=== PATIENT | male | born 1970 | race Caucasian/White ===

== ENCOUNTER 2021-09-18 18:38 | Emergency (ER) | payer OTHER, SELFPAY ==
--- NOTE | ~2021-09-18 | CT_ITS ---
EXAMINATION: CT ANGIOGRAM OF THE CHEST WITH AND WITHOUT CONTRAST (CT PULMONARY ANGIOGRAM FOR PE) CLINICAL INFORMATION: Reason for Exam chest pain, hx VTE, elevated d-dimer COMPARISON: None TECHNIQUE: Prior to contrast administration, noncontrast localization images were obtained. Subsequently, multidetector volumetric imaging was performed from the thoracic inlet to below the diaphragms following the administration of 80 mL Omnipaque 350 intravenous contrast. No contrast reaction reported Sagittal, coronal, and MIP oblique sagittal reformatted images were obtained on the CT workstation, uploaded to PACS, and reviewed. This CT examination was performed using dose optimization techniques as appropriate, variously including the following: *Automated exposure control *Adjustment of mA and/or kV according to patient size (this includes techniques or standardized protocols for targeted exams where dose is matched to indication/reason for exam; i.e. extremities or head) *Use of iterative reconstruction technique Total exam dose-length product 344 mGy-cm FINDINGS: QUALITY OF STUDY/CONTRAST BOLUS: Satisfactory. PULMONARY ARTERIES: No central or segmental pulmonary emboli. THORACIC AORTA: No aneurysm or dissection. LUNG: No focal consolidation, nodules or masses. Mild diffuse bronchial wall thickening without bronchiectasis. PLEURA: No pleural effusion or pneumothorax. MEDIASTINUM: Normal heart size. No pericardial effusion. Coronary calcifications. No hilar or mediastinal lymphadenopathy. No evidence of septal bowing or right heart strain. CHEST WALL/AXILLA: No axillary or internal mammary lymphadenopathy. OSSEOUS STRUCTURES: No acute or suspicious osseous abnormality. UPPER ABDOMEN: Unremarkable. CT/CT angio chest PE protocol IMPRESSION: No pulmonary embolism. No aortic aneurysm or dissection. Coronary calcifications. Mild diffuse bronchial wall thickening without bronchiectasis. Findings suggest bronchitis and/or asthma. VTE: negative
--- NOTE | ~2021-09-18 | XR_ITS ---
EXAMINATION: XR CHEST CLINICAL INFORMATION: Lower chest wall pain COMPARISON: None TECHNIQUE: 2 views of the chest were obtained. FINDINGS: No significant abnormality is noted involving the heart, lungs, mediastinum, bony thorax or soft tissues. XR/XR chest 2V IMPRESSION: Unremarkable examination.
[2021-09-18 19:08] VITALS: BP 125/85; PULSE 72; RESP 16; TEMP 36.2; O2SAT 98; BMI 34.9
[2021-09-18 20:00] VITALS: BP 125/85; PULSE 72; RESP 16
[2021-09-18 22:10] LABS: MANUAL DIFF FLAG NO
[2021-09-18 22:14] LABS: Basophils Percent Auto 0.4 % (0-2); Eosinophils Absolute Auto 0.1 X10*3/uL (0.0-0.4); Eosinophils Percent Auto 1.3 % (0-4); Hematocrit 48.3 % (42.0-52.0); Hemoglobin 16.1 g/dl (14.0-18.0); Imm Gran Abs Auto 0.01 X10*3/uL (0.00-0.03); Imm Gran Pct Auto 0.1 % (0.0-0.4); Lymphocytes Absolute Auto 2.6 X10*3/uL (1.2-4.9); Mean Corpuscular HGB Conc 33.3 g/dl (31.0-36.0); Mean Corpuscular Hemoglobin 29.8 pg (27.0-33.0); Mean Corpuscular Volume 89.4 fL (80.0-98.0); Monocytes Absolute Auto 0.7 X10*3/uL (0.1-1.2); Monocytes Percent Auto 9.4 % (2-11); Neutrophils Absolute Auto 3.7 x10*3/uL (2.0-8.3); Neutrophils Percent Auto 52.8 % (45-73); Platelet Count 142 X10*3/uL (160-400); Red Cell Distribution Width 13.2 % (11.0-16.0); White Blood Count 7.1 X10*3/uL (4.8-10.8)
[2021-09-18 22:15] VITALS: BP 120/70; PULSE 56; RESP 18; TEMP 36.6; O2SAT 95
[2021-09-18 22:19] LABS: Appearance Urine CLEAR; Color Urine YELLOW; Glucose Urine UA NEG (NEG); Leukocyte Esterase Urine NEG (NEG); Nitrite Urine NEG (NEG); Urine Blood NEG (NEG); Urine Ketones NEG (NEG); Urine Protein NEG (NEG-TRACE)
--- NOTE | 2021-09-18 22:24 | ED_ITS ---
HPI - General Adult General Chief complaint: Back Pain/Injury Stated complaint: kidney pain Time Seen by Provider: 09/18/21 21:41 Source: patient Mode of arrival: ambulatory History of Present Illness HPI narrative: 50-year-old male not currently on any prescribed medications but does have a significant remote history of prior left lower extremity DVT for which he was on 1 year of anticoagulation and then states he had a TIA after he was taken off of the anticoagulation and was evaluated at [facility] at that time. They did not identify the source and he has had no significant issues since that time. He now presents with 2 days bilateral diaphragmatic distribution of pain that does not radiate into the anterior abdomen is not been associated with fever, chills, new cough, nausea, vomiting, diarrhea but states that the pain is more uncomfortable with deep inspiration. Patient does describe chronic back pain. Related Data Allergies Allergy/AdvReac Type Severity Reaction Status Date / Time No Known Allergies Allergy Verified 09/18/21 19:08 Review of Systems Review of Systems: pertinent positives and negatives as stated in HPI 10 point review of systems is otherwise negative PMFSH Past Medical History Source: nursing notes reviewed Social History Social History Alcohol intake: unknown Patient Tobacco Use Status: Tobacco use Unknown Use of substances other than those prescribed or required for medical reasons: Unknown Advance Directives: No Physical Exam ED Vital Signs: Vital Signs - 24 hr 09/18/21 19:08 09/18/21 20:00 09/18/21 22:15 Temperature 97.1 F 97.9 F Pulse Rate 72 72 56 Respiratory Rate 16 16 18 Blood Pressure 125/85 125/85 120/70 Pulse Oximetry 98 95 09/19/21 00:29 Temperature 97.8 F Pulse Rate 54 Respiratory Rate 12 Blood Pressure 117/75 Pulse Oximetry 97 BMI result Body Mass Index 34.9 VITAL SIGNS: Reviewed. GENERAL: Well developed, well nourished, in no acute distress. HEAD: Normocephalic/atraumatic EYES: PERRLA, EOMI OROPHARYNX: no oral lesions noted, posterior pharynx clear LUNGS: Normal breath sounds. No adventitious sounds or accessory muscle use. SpO2<98> CARDIOVASCULAR: Regular rate and rhythm without noted murmurs, no JVD or lower extremity edema. ABDOMEN: Soft, non-tender, non-distended with bowel sounds. MUSCULOSKELETAL: No tenderness, deformities, or effusions noted on gross inspection. EXTREMITIES: No cyanosis, clubbing or edema. SKIN: Inspection of the skin reveals no rashes NEUROLOGIC: Alert and oriented x 4. Strength and sensation to light touch were grossly intact x 4. Course Course Course Narrative: 50-year-old male with history and clinical presentation most consistent with back pain, but will evaluate for possibility of pancreatitis, hepatobiliary etiology, and felt to be less likely renal colic. Review of all investigations otherwise negative for acute findings. Suspect t hat the symptoms are associated with back pain. All results were discussed with patient at bedside he was discharged home in stable condition. Medical Decision Making Lab Data Result diagrams: 09/18/21 22:05 09/18/21 22:05 Labs: Lab Results 09/18/21 09/18/21 09/18/21 Range/Units 22:05 22:05 22:12 WBC 7.1 (4.8-10.8) X10*3/uL RBC 5.40 (4.60-5.80) X10*6/uL Hgb 16.1 (14.0-18.0) g/dl Hct 48.3 (42.0-52.0) % MCV 89.4 (80.0-98.0) fL MCH 29.8 (27.0-33.0) pg MCHC 33.3 (31.0-36.0) g/dl RDW 13.2 (11.0-16.0) % Plt Count 142 L (160-400) X10*3/uL MPV 10.0 (9.4-12.4) fL Immature Gran % (Auto) 0.1 (0.0-0.4) % Neut % (Auto) 52.8 (45-73) % Lymph % (Auto) 36.0 (20-40) % Towner % (Auto) 9.4 (2-11) % Eos % (Auto) 1.3 (0-4) % Baso % (Auto) 0.4 (0-2) % Lymph # (Auto) 2.6 (1.2-4.9) X10*3/uL Towner # (Auto) 0.7 (0.1-1.2) X10*3/uL Eos # (Auto) 0.1 (0.0-0.4) X10*3/uL Baso # (Auto) 0.0 (0.0-0.2) X10*3/uL Abs Immat Gran (auto) 0.01 (0.00-0.03) X10*3/uL Absolute Neuts (auto) 3.7 (2.0-8.3) x10*3/uL Absolute Nucleated RBC 0.000 (0.0-0.012) X10*3/uL Nucleated RBC % (auto) 0.0 (0.0-0.2) /100WBC D-Dimer High Sensitivty NG/ML Sodium 140 (135-145) mmol/L Potassium 4.5 (3.3-5.1) mmol/L Chloride 106 (96-108) mmol/L Carbon Dioxide 27 (22-29) mmol/L Anion Gap 12 (12-20) BUN 13 (9-16) mg/dL Creatinine 0.99 (0.5-1.4) mg/dL Estim Creat Clear Calc 105.6 Estimated GFR > 60 Random Glucose 92 (60-115) mg/dL Calcium 9.3 (8.4-10.2) mg/dL Total Bilirubin 0.5 (0.0-1.0) mg/dL AST 18 (5-37) U/L ALT 25 (0-40) U/L Alkaline Phosphatase 73 (39-117) U/L Total Protein 7.0 (6.5-8.0) g/dL Albumin 4.1 (3.5-5.0) g/dL Lipase 18 (8-78) U/L Urine Color YELLOW Urine Appearance CLEAR Urine pH 6.0 (5.0-8.0) Ur Specific Bulger 1.020 (1.005-1.025) Urine Protein NEG (NEG-TRACE) MG/DL Urine Glucose (UA) NEG (NEG) MG/DL Urine Ketones NEG (NEG) MG/DL Urine Blood NEG (NEG) Urine Nitrite NEG (NEG) Ur Leukocyte Esterase NEG (NEG) 09/18/21 Range/Units 23:11 WBC (4.8-10.8) X10*3/uL RBC (4.60-5.80) X10*6/uL Hgb (14.0-18.0) g/dl Hct (42.0-52.0) % MCV (80.0-98.0) fL MCH (27.0-33.0) pg MCHC (31.0-36.0) g/dl RDW (11.0-16.0) % Plt Count (160-400) X10*3/uL MPV (9.4-12.4) fL Immature Gran % (Auto) (0.0-0.4) % Neut % (Auto) (45-73) % Lymph % (Auto) (20-40) % Towner % (Auto) (2-11) % Eos % (Auto) (0-4) % Baso % (Auto) (0-2) % Lymph # (Auto) (1.2-4.9) X10*3/uL Towner # (Auto) (0.1-1.2) X10*3/uL Eos # (Auto) (0.0-0.4) X10*3/uL Baso # (Auto) (0.0-0.2) X10*3/uL Abs Immat Gran (auto) (0.00-0.03) X10*3/uL Absolute Neuts (auto) (2.0-8.3) x10*3/uL Absolute Nucleated RBC (0.0-0.012) X10*3/uL Nucleated RBC % (auto) (0.0-0.2) /100WBC D-Dimer High Sensitivty 333 NG/ML Sodium (135-145) mmol/L Potassium (3.3-5.1) mmol/L Chloride (96-108) mmol/L Carbon Dioxide (22-29) mmol/L Anion Gap (12-20) BUN (9-16) mg/dL Creatinine (0.5-1.4) mg/dL Estim Creat Clear Calc Estimated GFR Random Glucose (60-115) mg/dL Calcium (8.4-10.2) mg/dL Total Bilirubin (0.0-1.0) mg/dL AST (5-37) U/L ALT (0-40) U/L Alkaline Phosphatase (39-117) U/L Total Protein (6.5-8.0) g/dL Albumin (3.5-5.0) g/dL Lipase (8-78) U/L Urine Color Urine Appearance Urine pH (5.0-8.0) Ur Specific Bulger (1.005-1.025) Urine Protein (NEG-TRACE) MG/DL Urine Glucose (UA) (NEG) MG/DL Urine Ketones (NEG) MG/DL Urine Blood (NEG) Urine Nitrite (NEG) Ur Leukocyte Esterase (NEG) Discharge Plan Discharge Clinical Impression: Thoracic back pain Patient Disposition: Home, Self-Care Instructions: Back Pain (ED) Additional Instructions: 1. Tylenol 1000 mg, orally, every 6 hours as needed for pain control. Do not exceed 4000 mg within 24 hours. 2. Ibuprofen 400 mg, orally with milk or food, every 6 hours as needed for pain control. You may take this along with Tylenol for additional symptom relief. 3. Lidocaine patch, these are available [id number] and can be apply to area of maximal tenderness as directed on the outside packaging. 4. Follow-up with your primary care provider in the next 2-3 days for re- evaluation further outpatient management. Return to the ER for worsening symptoms.
[2021-09-18 22:25] LABS: Alanine Aminotransferase 25 U/L (0-40); Albumin Level 4.1 g/dL (3.5-5.0); Alkaline Phosphatase 73 U/L (39-117); Anion Gap 12 (12-20); Aspartate Amino Transferase 18 U/L (5-37); Bilirubin Total 0.5 mg/dL (0.0-1.0); Blood Urea Nitrogen 13 mg/dL (9-16); Calcium 9.3 mg/dL (8.4-10.2); Carbon Dioxide 27 mmol/L (22-29); Chloride 106 mmol/L (96-108); Creatinine Clr Calc Pharmacy 105.6; Estimated Glomerular Filt Rate > 60; Glucose Random 92 mg/dL (60-115); Lipase 18 U/L (8-78); Potassium 4.5 mmol/L (3.3-5.1); Sodium 140 mmol/L (135-145)
[2021-09-18 23:26] LABS: D Dimer High Sensitivity 333 NG/ML
[2021-09-19] MEDS: iohexoL 350 MG/ML 100 ML INFUS..BTL 65 ML IV (00:27)
[2021-09-19 00:29] VITALS: BP 117/75; PULSE 54; RESP 12; TEMP 36.6; O2SAT 97
[2021-09-19] MEDS: Ibuprofen 400 MG TABLET PO (01:06)
[2021-09-19] MEDS: Acetaminophen 325 MG TABLET 975 MG PO (01:06)
== END 2021-09-19 01:13 | disposition home or self-care (01) ==
PROVIDERS: Emergency Provider Student in an Organized Health Care Education/Training Program
DX: M54.6 Pain in thoracic spine (principal)
CPT/HCPCS: 36415; 71046; 71275; 80053; 81003; 83690; 85025; 85379; 99284; 99285; Q9967

== ENCOUNTER 2022-07-01 06:14 | Outpatient (REF) | payer OTHER, SELFPAY ==
[2022-07-01 11:17] LABS: MANUAL DIFF FLAG NO
[2022-07-01 11:25] LABS: Basophils Percent Auto 0.6 % (0-2); Eosinophils Absolute Auto 0.1 X10*3/uL (0.0-0.4); Eosinophils Percent Auto 1.5 % (0-4); Hemoglobin 16.7 g/dl (14.0-18.0); Imm Gran Abs Auto 0.03 X10*3/uL (0.00-0.03); Imm Gran Pct Auto 0.5 % (0.0-0.4); Lymphocytes Absolute Auto 1.8 X10*3/uL (1.2-4.9); Lymphocytes Percent Auto 27.9 % (20-40); Mean Corpuscular HGB Conc 33.4 g/dl (31.0-36.0); Mean Corpuscular Hemoglobin 30.3 pg (27.0-33.0); Mean Corpuscular Volume 90.7 fL (80.0-98.0); Mean Platelet Volume 10.8 fL (9.4-12.4); Monocytes Absolute Auto 0.6 X10*3/uL (0.1-1.2); Monocytes Percent Auto 9.7 % (2-11); Neutrophils Percent Auto 59.8 % (45-73); Platelet Count 132 X10*3/uL (160-400); Red Blood Count 5.51 X10*6/uL (4.60-5.80); Red Cell Distribution Width 13.2 % (11.0-16.0); White Blood Count 6.6 X10*3/uL (4.8-10.8)
[2022-07-01 11:49] LABS: Alanine Aminotransferase 37 U/L (0-40); Albumin Level 4.2 g/dL (3.5-5.0); Alkaline Phosphatase 70 U/L (39-117); Anion Gap 11 (12-20); Aspartate Amino Transferase 25 U/L (5-37); Bilirubin Total 0.5 mg/dL (0.0-1.0); Blood Urea Nitrogen 16 mg/dL (9-16); Calcium 9.3 mg/dL (8.4-10.2); Carbon Dioxide 25 mmol/L (22-29); Chloride 105 mmol/L (96-108); Cholesterol 126 mg/dL; Estimated Glomerular Filt Rate > 60; Glucose Fasting 100 mg/dL (60-99); HDL Cholesterol 24 mg/dL; LDL Cholesterol Calculated 71 mg/dl; Potassium 4.4 mmol/L (3.3-5.1); Sodium 137 mmol/L (135-145); Total Protein 6.8 g/dL (6.5-8.0); Triglycerides 156 mg/dL
== END 2022-07-01 06:15 | disposition home or self-care (01) ==
LOC: HO.HMGCLDS 06:14
PROVIDERS: PCP Internal Medicine; Visit Provider Internal Medicine
DX: I25.2 Old myocardial infarction (principal); I10 Essential (primary) hypertension; E66.9 Obesity, unspecified; E78.5 Hyperlipidemia, unspecified; D69.6 Thrombocytopenia, unspecified
CPT/HCPCS: 36415; 80053; 80061; 85025

== ENCOUNTER → 2022-08-05 07:55 | Outpatient (BNVA) | payer OTHER, SELFPAY | PROVIDERS: PCP Internal Medicine; Visit Provider Nurse Practitioner Family | DX: Z13.89 Encounter for screening for other disorder (principal) ==

== ENCOUNTER → 2022-08-17 14:59 | Outpatient (REF) | payer OTHER, SELFPAY | LOC: HO.SL 14:59 | PROVIDERS: PCP Internal Medicine; Visit Provider Nurse Practitioner Family | DX: G47.33 Obstructive sleep apnea (adult) (pediatric) (principal); E66.9 Obesity, unspecified; Z99.89 Dependence on other enabling machines and devices | CPT/HCPCS: 95806 ==

== ENCOUNTER → 2022-09-29 09:20 | Outpatient (BNVA) | payer OTHER, SELFPAY | PROVIDERS: PCP Internal Medicine; Visit Provider Nurse Practitioner Family | DX: G47.33 Obstructive sleep apnea (adult) (pediatric) (principal); Z99.89 Dependence on other enabling machines and devices; I10 Essential (primary) hypertension; E66.9 Obesity, unspecified; I25.2 Old myocardial infarction ==

== ENCOUNTER 2022-10-29 06:54 | Outpatient (REF) | payer OTHER, SELFPAY ==
[2022-10-29 11:40] LABS: MANUAL DIFF FLAG NO
[2022-10-29 11:53] LABS: Basophils Percent Auto 0.4 % (0-2); Eosinophils Absolute Auto 0.1 X10*3/uL (0.0-0.4); Eosinophils Percent Auto 1.8 % (0-4); Hematocrit 49.2 % (42.0-52.0); Hemoglobin 16.2 g/dl (14.0-18.0); Imm Gran Abs Auto 0.02 X10*3/uL (0.00-0.03); Imm Gran Pct Auto 0.3 % (0.0-0.4); Lymphocytes Absolute Auto 1.9 X10*3/uL (1.2-4.9); Lymphocytes Percent Auto 28.7 % (20-40); Mean Corpuscular HGB Conc 32.9 g/dl (31.0-36.0); Mean Corpuscular Hemoglobin 29.8 pg (27.0-33.0); Mean Corpuscular Volume 90.6 fL (80.0-98.0); Mean Platelet Volume 11.1 fL (9.4-12.4); Monocytes Absolute Auto 0.6 X10*3/uL (0.1-1.2); Monocytes Percent Auto 8.1 % (2-11); Neutrophils Absolute Auto 4.1 x10*3/uL (2.0-8.3); Neutrophils Percent Auto 60.7 % (45-73); Platelet Count 146 X10*3/uL (160-400); Red Blood Count 5.43 X10*6/uL (4.60-5.80); Red Cell Distribution Width 13.6 % (11.0-16.0); White Blood Count 6.8 X10*3/uL (4.8-10.8)
[2022-10-29 12:42] LABS: Alanine Aminotransferase 44 U/L (0-40); Anion Gap 11 (12-20); Aspartate Amino Transferase 29 U/L (5-37); Blood Urea Nitrogen 15 mg/dL (9-16); Calcium 8.9 mg/dL (8.4-10.2); Carbon Dioxide 27 mmol/L (22-29); Chloride 107 mmol/L (96-108); Cholesterol 114 mg/dL; Estimated Glomerular Filt Rate > 60; Glucose Fasting 91 mg/dL (60-99); HDL Cholesterol 29 mg/dL; LDL Cholesterol Calculated 57 mg/dl; PSA,Total (Free>4and<10) 0.68 ng/mL (0.00-4.00); Potassium 4.2 mmol/L (3.3-5.1); Sodium 141 mmol/L (135-145); Triglycerides 140 mg/dL; Vitamin D 25-OH Total 36.1 ng/mL (>30)
== END 2022-10-29 06:55 | disposition home or self-care (01) ==
LOC: HO.HMGCLDS 06:54
PROVIDERS: PCP Internal Medicine; Visit Provider Internal Medicine
DX: E78.5 Hyperlipidemia, unspecified (principal); I25.2 Old myocardial infarction; E66.9 Obesity, unspecified; I10 Essential (primary) hypertension; D69.6 Thrombocytopenia, unspecified; Z12.5 Encounter for screening for malignant neoplasm of prostate
CPT/HCPCS: 36415; 80048; 80061; 82306; 84153; 84450; 84460; 85025

== ENCOUNTER 2022-11-01 11:38 | Outpatient (AMB) | payer OTHER, SELFPAY ==
--- NOTE | 2022-11-01 10:07 | A.OFFPC_ITS ---
Vital Signs 11/01/22 12:11 Height 5 ft 8 in Weight 239 lb 2 oz BMI 36.3 BP 108/70 Blood Pressure Location Rt brachial Position Sitting Pulse 61 Pulse Source Pulse Oximeter Pulse Oximetry (%) 97 Oxygen Delivery Method Room Air Intake Visit Reasons: 10/2022 ffup lipids , htn Intake Note: pt is here to follow up for HTN and choles pt has had his labs done Allergies No Known Allergies Allergy (Verified 04/24/23 16:05) Medication List - Last Reconciled 11/01/22 by Donna Romero MD aspirin 81 mg PO DAILY fluticasone propionate 50 mcg/actuation (Children's Flonase Allergy Relief) 1 spray intranasal DAILY metoprolol succinate ER 25 mg PO DAILY multivitamin 1 tab PO DAILY rosuvastatin 40 mg PO DAILY ticagrelor (Brilinta) 90 mg PO BID Tobacco use date assessed: 11/01/22 HPI 10/2022 ffup lipids , htn HPI Details 52-year-old male here today for follow-u p on his hypertension dyslipidemia, currently taking metoprolol succinate ER 25 mg once a day and with rosuvastatin 40 mg daily. Has been compliant with taking his medications and has been following recommended diet. Recent fasting labs showed electrolytes, renal function, lipids within normal limits except for low good cholesterol. Is cigarette smoker at least 8 cigarettes a day, interested in quitting. [facility] Medical History (Updated 04/24/23 @ 16:12 by Donna Romero MD) Atherosclerotic cardiovascular disease Cigarette smoker motivated to quit Smoker unmotivated to quit Thrombocytopenia Hx of deep venous thrombosis AUDREY on CPAP HTN (hypertension) Obesity Hyperlipidemia Hx of non-ST elevation myocardial infarction (NSTEMI) Surgical History History of heart artery stent History of coronary angioplasty Family History Father Arrhythmia Bacterial endocarditis Mother No problems noted. Daughter Asthma Thyroid cancer Hypoparathyroidism after surgical removal of thyroid gland Social History Housing: House Alcohol intake: current Alcohol intake frequency: other Patient Tobacco Use Status: Current everyday Tobacco user Cigarettes Per Day: 8 e-Cigarette/Vaping Use: Former Use Second Hand Smoke Exposure: No service: No Current occupational status: employed Cognitive needs: No Hearing needs: No Vision needs: Yes Questionnaire PHQ-9 Over the last 2 weeks, how often have you been bothered by any of the following problems? Depression Screening Interpretation: Negative Source: Developed by Drs. Cedric Juan, Ofelia Quiñones, Robert Choudhury and colleagues, with an educational carlos from [employer]. Thrive Questionnaire Date Thrive assessed: 03/22/22 TOBIAS-7 AMB Questionnaire TOBIAS-7 Date TOBIAS - 7 assessed: 03/22/22 Source: Developed by Drs. Cedric Juan, Ofelia Quiñones, Robert Choudhury and colleagues, with an educational carlos from [employer]. Review of Systems Const Denies fatigue, Denies fever(s), Denies frequent falls, Denies snoring and Denies weakness Eyes Denies change in vision ENT Reports Normal hearing present, Denies dysphagia, Denies dizziness, Denies nasal congestion, Denies disequilibrium, Denies post nasal drip and Denies sinus pressure Card Denies chest pain, Denies chest pain with activity, Denies syncope, Denies rapid heart rate, Denies claudication, Denies leg edema, Denies lightheadedness, Denies palpitations, Denies dyspnea and Denies dyspnea on exertion Resp Denies cough, Denies dyspnea, Denies dyspnea on exertion, Denies snoring and Denies wheezing GI Denies abdominal pain, Denies melena, Denies hematochezia, Denies change in bowel habits, Denies change in stool character, Denies dysphagia, Denies heartburn and Denies nausea Denies hematuria, Denies dysuria and Denies urinary frequency Musc Denies arthralgias, Denies muscle weakness, Denies numbness and Denies tingling Skin/Breast Denies nail changes and Denies rash Neuro Reports Normal hearing present, Denies dizziness, Denies syncope, Denies frequent falls, Denies memory loss, Denies numbness, Denies tingling, Denies disequilibrium and Denies weakness Psych Denies depression and Denies memory loss Endo Denies fatigue and Denies palpitations Sherwin/Lymph Denies easy bleeding and Denies easy bruising Aller/Immun Denies wheezing Physical exam (Primary Care) Vital Signs: Last Vital Signs Pulse 61 11/01/22 12:11 BP 108/70 11/01/22 12:11 Pulse Ox 97 11/01/22 12:11 Oxygen Delivery Method Room Air 11/01/22 12:11 BMI result Body Mass Index 36.3 BMI Assessment/Plan discussion: High BMI High, discussed plan: lifestyle, weight reduction, dietary and physical activity Tobacco/Smoking Status: Tobacco use Status Tobacco use date assessed 11/01/22 11/01/22 12:16 Patient Tobacco Use Status Current someday Tobacco 11/01/22 10:07 e-Cigarette/Vaping Use Former Use 11/01/22 10:07 Are you ready to quit: No Tobacco cessation counseling provided: Yes Items discussed: Other Depression Screening Interpretation: Negative Thrive Assessment: Date of Thrive Assessment Date Thrive assessed 03/22/22 11/01/22 10:07 Const Other: Alert oriented x3, no acute distress noted ambulatory normal gait Nutritional Appearance: obese Orientation/consciousness: patient oriented x3 HENMT Head: Yes normocephalic and Yes atraumatic Ears: TM's normal bilaterally General nose exam: Normal external nose present Face and sinus: Yes face symmetric Mouth: Normal oral and palatal mucosa present and moist mucous membranes Eyes General: appearance normal, both eyes and all related structures Neck Neck: Yes full ROM, Yes no lymphadenopathy and Yes supple Thyroid: Thyroid normal Carotids: no bruits Chest Chest palpation & inspection: normal inspection of the chest and normal palpation of entire chest wall Resp Effort & Inspection: normal respiratory effort and able to speak in complete sentences Auscultation: clear to auscultation bilaterally Cardio Other: S1-S2 present regular rate and rhythm Bruits: no abdominal aortic bruits GI Inspection: Yes obesity Palpation (GI): No Abdominal aortic bruit present, Soft to palpation, nontender, no guarding and no masses Auscultation: normal bowel sounds Back/Spine/Pelvis Back: No back tenderness Skin General skin exam: no rashes or lesions noted Neuro General: patient oriented x3, gait normal, Normal light touch and pain sensation, no focal motor deficits and CN's II-XI intact bilaterally Cranial nerves: Yes Normal hearing present Extrem General: Yes full ROM, Yes no joint enlargement, Yes no calf tenderness and Yes normal gait Results Reviewed Results Reviewed: Name: Cedric Long Age/Sex: 51/M : 1970 Unit#: [id number] Attend Dr: Donna Romero MD Re10/29/22 Status: DEP REF Location: [facility] Disch: SPEC : [id number] ROSALEE: 10/29/22 STATUS: COMP REQ : [id number] RECD: 10/29/22-[address]: Donna Romero MD COMP: 10/29/222 ENTERED: 10/29/[address] [facility] [address]: ORDERED: Met Prof Fast, AST, ALT, Lipid Panel, PSA W/ REFLEX, Vitamin D 25-OH Test Result Flag Reference Site Sodium 141 135-145 mmol/L Potassium 4.2 3.3-5.1 mmol/L CL 107 96-108 mmol/L CO2 27 22-29 mmol/L Gap 11 L 12-20 BUN 15 9-16 mg/dL Creat 1.07 0.5-1.4 mg/dL EGFR > 60 NOTE: For -[place] individuals, multiply the result by 1.210. Chronic Kidney Disease: Estimated GFR < 60 mL/min/1 .73m2 Severe Kidney Disease: Estimated GFR < 15 mL/min/1.73m2 FBS 91 60-99 mg/dL CA 8.9 8.4-10.2 mg/dL AST (GOT) 29 5-37 U/L ALT (GPT) 44 H 0-40 U/L Triglyceride 140 mg/dL Desirable Triglyceride: less than 150 mg/dL Borderline High Triglyceride 150-199 mg/dL High Triglyceride: 200-499 mg/dL Very High Triglyceride: greater than or equal to 5OO mg/dL Chol 114 mg/dL Desirable Cholesterol: less than 200 mg/dL Borderline High Cholesterol: 200-239 mg/dL High Cholesterol: greater than 239 mg/dL LDL Calculated 57 mg/dl Desirable LDL: less than 100 mg/dL Near Optimal/Above Optimal LDL: 110-129 mg/dL Borderline High LDL: 130-159 mg/dL High LDL: 160-189 mg/dL Very High LDL: greater than or equal to 190 mg/dL HDL 29 mg/dL Desirable HDL: greater than 40 mg/dL Note: This HDL assay may give artificially low results in patients with liver disease. PSA W/ REFLEX 0.68 0.00-4.00 ng/mL A Free PSA was not performed: The percentage of Free PSA can be used to enhance the differentiation of prostate cancer from benign prostatic disease in subjects whose PSA levels are between 4.0 and 10.0 ng/mL. For subjects whose PSA levels are below 4.0 or above 10.0 ng/mL, the risk of prostate cancer is determined on the basis of the PSA alone. Therefore the % Free PSA is recommended only for those subjects whose PSA levels are between 4.0 and 10.0 ng/mL. PSA methodology: George Alinity i Chemiluminescent Microparticle Immunoassay (CMIA) Vit D 25-OH Tot 36.1 >30 ng/mL Health Based Reference Values* < 20 ng/mL Deficient 20-30 ng/mL Insufficient > 30 ng/mL Sufficient Assessment and Plan Assessment & Plan (1) Cigarette smoker motivated to quit: Code(s): F17.210 - Nicotine dependence, cigarettes, uncomplicated Plan: Prescription sent for varenicline, discussed possible side effects of medication which may include nausea, abdominal cramping, and suicidal ideations, to take it with a meal and with glass of water, discontinue the medication and call 911 if any suicidal ideations occurs. Follow-up in 4 weeks starting medication (2) HTN (hypertension): Code(s): I10 - Essential (primary) hypertension Qualifiers: Hypertension type: primary hypertension Qualified Code(s): I10 - Essential (primary) hypertension (3) Hyperlipidemia: Code(s): E78.5 - Hyperlipidemia, unspecified Qualifiers: Hyperlipidemia type: moderate mixed hyperlipidemia not requiring statin therapy Qualified Code(s): E78.2 - Mixed hyperlipidemia Plan: Reviewed recent fasting lipid profile with patient with levels within normal limits except for low HDL . Continue with rosuvastatin 40 mg daily , in addition to adherence to low-cholesterol diet and regular exercise, at least 30 minutes 3 to 4 times a week. Advised patient to make healthy food choices, eat more fruits, vegetables, whole grains, wild caught fish and low-fat dairy. Limit amount of meat and fried or fatty food products, as well as processed foods and fast foods. (4) Hx of non-ST elevation myocardial infarction (NSTEMI): Code(s): I25.2 - Old myocardial infarction Plan: Currently on aspirin 81 mg daily and Brilinta, followed by cardiology Medications: New varenicline PO PER PKG DIR 53 ea 0RF F17.210 - Nicotine dependence, cigarettes, uncomplicated Coding Level of Care Code Est Pt Level 4 (09873) Diagnoses Cigarette smoker motivated to quit F17.210 Primary hypertension I10 Hypertension type: primary hypertension Moderate mixed hyperlipidemia not requiring statin therapy E78.2 Hyperlipidemia type: moderate mixed hyperlipidemia not requiring statin therapy Hx of non-ST elevation myocardial infarction (NSTEMI) I25.2
[2022-11-01 12:11] VITALS: BP 108/70; PULSE 61; O2SAT 97; BMI 36.3
== END 2022-11-01 13:04 | disposition home or self-care (01) ==
LOC: HO.HMGC 11:38
PROVIDERS: PCP Internal Medicine; Visit Provider Internal Medicine
DX: F17.210 Nicotine dependence, cigarettes, uncomplicated (principal); I10 Essential (primary) hypertension; E78.2 Mixed hyperlipidemia; I25.2 Old myocardial infarction
CPT/HCPCS: 99214

== ENCOUNTER 2022-11-29 10:19 | Outpatient (AMB) | payer OTHER, SELFPAY ==
--- NOTE | 2022-11-29 10:21 | A.OFFPC_ITS ---
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 Allergies No Known Allergies Allergy (Verified 04/24/23 16:05) Medication List - Last Reconciled 11/29/22 by Donna Romero MD aspirin 81 mg PO DAILY fluticasone propionate 50 mcg/actuation (Children's Flonase Allergy Relief) 1 spray intranasal DAILY metoprolol succinate ER 25 mg PO DAILY multivitamin 1 tab PO DAILY rosuvastatin 40 mg PO DAILY ticagrelor (Brilinta) 90 mg PO BID varenicline PO PER PKG DIR Tobacco use date assessed: 11/29/22 HPI 4wk follow up htn HPI Details 52-year-old male with history of non YAW [place], obesity, obstructive sleep apnea on CPAP, here today for follow-up on his blood pressure. He has been taking metoprolol succinate ER 25 mg daily, and rosuvastatin 40 mg daily blood pressure has been stable and controlled on present treatment, and fasting lipids done a month ago showed LDL below 70 mg, but low HDL as well. Was prescribed varenicline on last visit but did not fill continues to smoke, with no desire to quit at present time. He previously was being seen at [facility] but has not followed up. Currently still taking Brilinta and aspirin 81 mg daily, no recent follow-up with Cardiology since his non STEMI a year ago. No complaints of any chest pain, no shortness of breath chest pressure lightheadedness or headache [facility] Medical History (Updated 04/24/23 @ 16:12 by Donna Romero MD) Atherosclerotic cardiovascular disease Smoker unmotivated to quit Thrombocytopenia Hx of deep venous thrombosis AUDREY on CPAP HTN (hypertension) Obesity Hyperlipidemia Hx of non-ST elevation myocardial infarction (NSTEMI) Surgical History History of heart artery stent History of coronary angioplasty Family History Father Arrhythmia Bacterial endocarditis Mother No problems noted. Daughter Asthma Thyroid cancer Hypoparathyroidism after surgical removal of thyroid gland Social History Housing: House Alcohol intake: current Alcohol intake frequency: other Patient Tobacco Use Status: Current everyday Tobacco user Cigarettes Per Day: 8 e-Cigarette/Vaping Use: Former Use Second Hand Smoke Exposure: No service: No Current occupational status: employed Cognitive needs: No Hearing needs: No Vision needs: Yes Questionnaire Thrive Questionnaire Date Thrive assessed: 03/22/22 AUDIT C Alcohol Use Questionnaire (AUDIT-C) 1. How often do you have a drink containing alcohol?: Monthly or less 2. How many drinks containing alcohol do you have on a typical day when you are drinking?: 1 or 2 3. How often do you have six or more drinks on one occasion?: Never Total Score: 1 TOBIAS-7 AMB Questionnaire TOBIAS-7 Date TOBIAS - 7 assessed: 03/22/22 Source: Developed by Drs. Cedric Juan, Ofelia Quiñones, Robert Choudhury and colleagues, with an educational carlos from [employer]. Review of Systems Const Denies daytime sleepiness, Denies fatigue, Denies fever(s), Denies frequent falls, Denies snoring and Denies weakness Eyes Denies change in vision ENT Reports Normal hearing present, Denies dysphagia, Denies dizziness, Denies nasal congestion, Denies disequilibrium, Denies post nasal drip and Denies sinus pressure Card Denies chest pain, Denies chest pain with activity, Denies syncope, Denies rapid heart rate, Denies claudication, Denies leg edema, Denies lightheadedness, Denies palpitations, Denies dyspnea and Denies dyspnea on exertion Resp Denies cough, Denies dyspnea, Denies dyspnea on exertion, Denies snoring and Denies wheezing GI Denies abdominal pain, Denies melena, Denies hematochezia, Denies change in bowel habits, Denies change in stool character, Denies dysphagia, Denies heartburn and Denies nausea Denies hematuria, Denies dysuria and Denies urinary frequency Musc Denies arthralgias, Denies muscle weakness, Denies numbness and Denies tingling Neuro Reports Normal hearing present, Denies dizziness, Denies syncope, Denies frequent falls, Denies numbness, Denies tingling, Denies disequilibrium and Denies weakness Psych Reports no additional complaints Endo Denies fatigue and Denies palpitations Sherwin/Lymph Denies easy bleeding and Denies easy bruising Aller/Immun Denies wheezing Physical exam (Primary Care) Vital Signs: Last Vital Signs Pulse 85 11/29/22 10:23 BP 112/70 11/29/22 10:23 Pulse Ox 94 11/29/22 10:23 Oxygen Delivery Method Room Air 11/29/22 10:23 BMI result Body Mass Index 35.9 BMI Assessment/Plan discussion: High BMI High, discussed plan: lifestyle, weight reduction, dietary and physical activity Tobacco/Smoking Status: Tobacco use Status Tobacco use date assessed 11/29/22 11/29/22 10:23 Patient Tobacco Use Status Current someday Tobacco 11/29/22 10:23 e-Cigarette/Vaping Use Former Use 11/29/22 10:23 Are you ready to quit: No Tobacco cessation counseling provided: Yes Items discussed: Other Thrive Assessment: Date of Thrive Assessment Date Thrive assessed 03/22/22 11/29/22 10:23 Const Other: Alert oriented x3, no acute distress noted ambulatory normal gait Nutritional Appearance: obese Orientation/consciousness: patient oriented x3 HENMT Head: Yes normocephalic and Yes atraumatic Ears: TM's normal bilaterally General nose exam: Normal external nose present Face and sinus: Yes face symmetric Mouth: Normal oral and palatal mucosa present and moist mucous membranes Eyes General: appearance normal, both eyes and all related structures Neck Neck: Yes full ROM, Yes no lymphadenopathy and Yes supple Resp Effort & Inspection: normal respiratory effort and able to speak in complete sentences Auscultation: clear to auscultation bilaterally Cardio Other: S1-S2 present regular rate and rhythm Bruits: no abdominal aortic bruits GI Inspection: Yes obesity Palpation (GI): No Abdominal aortic bruit present, Soft to palpation, nontender, no guarding and no masses Auscultation: normal bowel sounds Back/Spine/Pelvis Back: No back tenderness Skin General skin exam: no rashes or lesions noted Neuro General: patient oriented x3, gait normal, Normal light touch and pain sensation, no focal motor deficits and CN's II-XI intact bilaterally Cranial nerves: Yes Normal hearing present Extrem General: Yes full ROM, Yes no joint enlargement, Yes no calf tenderness and Yes normal gait Results Reviewed Results Reviewed: RUN: 11/29/22 1101 PAGE 1 [facility] [address] [place] [id number] Cinder Crane Operator: Trever Rubio M.D. Specimen Inquiry Name: Cedric Long Age/Sex: 51/M : 1970 Unit#: [id number] Attend Dr: Donna Romero MD Re10/29/22 Status: DEP REF Location: [facility] Disch: SPEC : [id number] ROSALEE: 10/29/22 STATUS: COMP REQ : [id number] RECD: 10/29/[address]: Donna Romero MD COMP: 10/29/22 ENTERED: 10/29/[address]: ORDERED: Met Prof Fast, AST, ALT, Lipid Panel, PSA W/ REFLEX, Vitamin D 25-OH Test Result Flag Reference Site N Sodium 141 135-145 mmol/L Potassium 4.2 3.3-5.1 mmol/L CL 107 96-108 mmol/L CO2 27 22-29 mmol/L Gap 11 L 12-20 BUN 15 9-16 mg/dL Creat 1.07 0.5-1.4 mg/dL EGFR > 60 NOTE: For -Pakistani individuals, multiply the result by 1.210. Chronic Kidney Disease: Estimated GFR < 60 mL/min/1.73m2 Severe Kidney Disease: Estimated GFR < 15 mL/min/1.73m2 FBS 91 60-99 mg/dL CA 8.9 8.4-10.2 mg/dL AST (GOT) 29 5-37 U/L ALT (GPT) 44 H 0-40 U/L Triglyceride 140 mg/dL Desirable Triglyceride: less than 150 mg/dL Borderline High Triglyceride 150-199 mg/dL High Triglyceride: 200-499 mg/dL Very High Triglyceride: greater than or equal to 5OO mg/dL Chol 114 mg/dL Desirable Cholesterol: less than 200 mg/dL Borderline High Cholesterol: 200-239 mg/dL High Cholesterol: greater than 239 mg/dL LDL Calculated 57 mg/dl Desirable LDL: less than 100 mg/dL Near Optimal/Above Optimal LDL: 110-129 mg/dL Borderline High LDL: 130-159 mg/dL High LDL: 160-189 mg/dL Very High LDL: greater than or equal to 190 mg/dL HDL 29 mg/dL Desirable HDL: greater than 40 mg/dL Note: This HDL assay may give artificially low results in patients with liver disease. PSA W/ REFLEX 0.68 0.00-4.00 ng/mL A Free PSA was not performed: The percentage of Free PSA can be used to enhance the differentiation of prostate cancer from benign prostatic disease in subjects whose PSA levels are between 4.0 and 10.0 ng/mL. For subjects whose PSA levels are below 4.0 or above 10.0 ng/mL, the risk of prostate cancer is determined on the basis of the PSA alone. Therefore the % Free PSA is recommended only for those subjects whose PSA levels are between 4.0 and 10.0 ng/mL. PSA methodology: George Alinity i Chemiluminescent Microparticle Immunoassay (CMIA) Vit D 25-OH Tot 36.1 >30 ng/mL Health Based Reference Values* < 20 ng/mL Deficient 20-30 ng/mL Insufficient > 30 ng/mL Sufficient Assessment and Plan Assessment & Plan (1) Hx of non-ST elevation myocardial infarction (NSTEMI): Code(s): I25.2 - Old myocardial infarction Plan: Referred to cardiology at [facility], has not been seen by Cardiology since his non STEMI episode a year ago, currently asymptomatic currently on Brilinta and aspirin 81 daily (2) HTN (hypertension): Code(s): I10 - Essential (primary) hypertension Qualifiers: Hypertension type: primary hypertension Qualified Code(s): I10 - Essential (primary) hypertension Plan: Continue metoprolol ER 25 mg daily (3) Hyperlipidemia: Code(s): E78.5 - Hyperlipidemia, unspecified Qualifiers: Hyperlipidemia type: moderate mixed hyperlipidemia not requiring statin therapy Qualified Code(s): E78.2 - Mixed hyperlipidemia Plan: Continued on rosuvastatin 40 mg daily (4) AUDREY on CPAP: Code(s): G47.33 - Obstructive sleep apnea (adult) (pediatric); Z99.89 - Dependence on other enabling machines and devices Plan: Compliant with CPAP (5) Smoker unmotivated to quit: Code(s): F17.200 - Nicotine dependence, unspecified, uncomplicated Plan: Patient strongly advised to stop smoking, as smoking damages blood vessels, degenerative of joints and spine, damage to lungs and heart., predisposes to developing certain cancers like lung, breast, bladder, colon. Recommended to try decreasing cigarette use by 1-2 cigarettes a day. Advised to monitor what triggers are for smoking so that this can be discussed on the next office visit. We can discuss different options to quit smoking when ready. Orders: Referrals Cardiology Referral I25.2 - Old myocardial infarction Coding Level of Care Code Est Pt Level 4 (56483) Diagnoses Hx of non-ST elevation myocardial infarction (NSTEMI) I25.2 Primary hypertension I10 Hypertension type: primary hypertension Moderate mixed hyperlipidemia not requiring statin therapy E78.2 Hyperlipidemia type: moderate mixed hyperlipidemia not requiring statin therapy AUDREY on CPAP G47.33; Z99.89 Smoker unmotivated to quit F17.200
[2022-11-29 10:23] VITALS: BP 112/70; PULSE 85; O2SAT 94; BMI 35.9
== END 2022-11-29 11:21 | disposition home or self-care (01) ==
LOC: HO.HMGC 10:19
PROVIDERS: PCP Internal Medicine; Visit Provider Internal Medicine
DX: I10 Essential (primary) hypertension (principal); F17.210 Nicotine dependence, cigarettes, uncomplicated; G47.33 Obstructive sleep apnea (adult) (pediatric); I25.2 Old myocardial infarction; E78.2 Mixed hyperlipidemia; Z99.89 Dependence on other enabling machines and devices
CPT/HCPCS: 99214

== ENCOUNTER 2023-02-16 08:20 | Outpatient (AMB) | payer OTHER, SELFPAY ==
[2023-02-16 08:28] VITALS: BP 100/74; PULSE 56; BMI 33.8
--- NOTE | 2023-02-16 08:28 | MHC.OFFVIS ---
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/22 Intake Note: NPV w/ EKG Geospatial Developer Required: No Accompanied by: Self / Same As Patient Allergies No Known Allergies Allergy (Verified 02/16/23 08:31) Medication List - Last Reconciled 02/16/23 by Aaron Sheppard MD aspirin 81 mg PO DAILY fluticasone propionate 50 mcg/actuation (Children's Flonase Allergy Relief) 1 spray intranasal DAILY metoprolol succinate ER 25 mg PO DAILY multivitamin 1 tab PO DAILY rosuvastatin 40 mg PO DAILY ticagrelor (Brilinta) 90 mg PO BID varenicline PO PER PKG DIR HPI HPI Comments History of Present Illness Details Cedric is here for consultation regarding coronary artery disease. He used to previously see [facility] but would like to switch here. Last year, he was admitted to [facility] with non ST-elevation myocardial infarction. At that time, it seems that he underwent circumflex stenting. History of smoking. Listed hypertension but blood pressure is actually on the lower side or normal on multiple recorded readings. Otherwise, has obesity as well as obstructive sleep apnea. Over the last year, after the PCI, he is doing well. No complaints like angina or shortness of breath or in fact anything cardiac sounding. [facility] Medical History (Updated 02/16/23 @ 08:49 by Aaron Sheppard MD) Atherosclerotic cardiovascular disease Cigarette smoker motivated to quit HTN (hypertension) Hx of deep venous thrombosis Hx of non-ST elevation myocardial infarction (NSTEMI) Hyperlipidemia Obesity AUDREY on CPAP Smoker unmotivated to quit Thrombocytopenia Surgical History History of coronary angioplasty History of heart artery stent Family History Father Arrhythmia Bacterial endocarditis Mother No problems noted. Daughter Asthma Thyroid cancer Hypoparathyroidism after surgical removal of thyroid gland Social History (Updated 02/16/23 @ 08:32 by Jo Bellamy) Housing: House Alcohol intake: current Alcohol intake frequency: other Patient Tobacco Use Status: Current everyday Tobacco user Cigarettes Per Day: 8 e-Cigarette/Vaping Use: Former Use Second Hand Smoke Exposure: No service: No Current occupational status: employed Cognitive needs: No Hearing needs: No Vision needs: Yes Review of Systems Const Denies chills, Denies daytime sleepiness, Denies fatigue, Denies fever(s), Denies frequent falls, Denies night sweats, Denies snoring, Denies weakness, Denies weight gain and Denies weight loss Eyes Denies loss of vision ENT Denies dizziness and Denies hearing loss Card Denies chest pain, Denies chest pain with activity, Denies syncope, Denies rapid heart rate, Denies edema, Denies claudication, Denies leg edema, Denies lightheadedness, Denies palpitations, Denies dyspnea, Denies dyspnea on exertion and Denies orthopnea Resp Denies cough, Denies excessive phlegm production, Denies dyspnea, Denies dyspnea on exertion, Denies snoring and Denies wheezing GI Denies abdominal pain, Denies hematochezia, Denies change in bowel habits, Denies change in stool character, Denies heartburn, Denies nausea and Denies vomiting Denies hematuria, Denies dysuria and Denies urinary frequency Musc Denies arthralgias, Denies muscle weakness, Denies numbness and Denies tingling Skin/Breast Denies nail changes and Denies rash Neuro Denies Abnormal speech present, Denies dizziness, Denies syncope, Denies frequent falls, Denies loss of vision, Denies memory loss, Denies numbness, Denies tingling and Denies weakness Psych Denies depression and Denies memory loss Endo Denies fatigue and Denies palpitations Aller/Immun Denies wheezing Physical Exam Vital Signs: Last Vital Signs Pulse 56 02/16/23 08:28 BP 100/74 02/16/23 08:28 BMI result Body Mass Index 33.8 Const General: comfortable and no acute distress Orientation/consciousness: patient oriented x3 HEENT Other: Unremarkable Head: Yes normal to inspection Neck Neck: Yes normal visual inspection Chest Chest palpation & inspection: normal inspection of the chest Resp Auscultation: clear to auscultation bilaterally Cardio Palpation: normal PMI Heart sounds: S1 normal heart sound present, S2 normal heart sound present, no gallops, no murmurs and no rubs GI Palpation (GI): Soft to palpation Back/Spine/Pelvis Other: unremarkable Skin General skin exam: no rashes or lesions noted Neuro General: patient oriented x3 Speech: No Abnormal speech present Extrem General: Yes normal to inspection Psych Mental Status: mental status grossly normal Office Procedures EKG Details: EKG with sinus bradycardia 56/Min; cannot exclude old inferior infarct or anterior infarct but could also be from body habitus[place]. [id number], Complete Assessment & Plan Assessment & Plan (1) Atherosclerotic cardiovascular disease: Code(s): I25.10 - Atherosclerotic heart disease of [place] coronary artery without angina pectoris (2) NSTEMI (non-ST elevated myocardial infarction): Code(s): I21.4 - Non-ST elevation (NSTEMI) myocardial infarction (3) Obesity: Code(s): E66.9 - Obesity, unspecified (4) AUDREY on CPAP: Code(s): G47.33 - Obstructive sleep apnea (adult) (pediatric); Z99.89 - Dependence on other enabling machines and devices Plan Cardiac studies reviewed. Echocardiogram with LVEF of 55-60%. No wall motion abnormalities. No significant valvular issues. [id number] LVH. Cardiac catheterization reviewed from March 2022. Circumflex with mid 90% stenosis. Status post PCI. Otherwise, diffuse CAD somewhat in the moderate range. Overall, stable CAD. Aggressive risk factor modification. Needs to lose some weight if able. Discussed about this today. Compliant with CPAP. Blood pressure is already normal range. LDL 57 mg/dL. With regard to AUDREY, continue CPAP. Follow-up in 6 months. If any interim concerns, he will contact us. Coding Level of Care Code New Pt Level 4 (58358) Diagnoses Atherosclerotic cardiovascular disease I25.10 NSTEMI (non-ST elevated myocardial infarction) I21.4 Obesity E66.9 AUDREY on CPAP G47.33; Z99.89 CPT Codes EKG - CPT: [id number], Complete ([id number])
== END 2023-02-16 08:53 | disposition home or self-care (01) ==
PROVIDERS: Visit Provider Internal Medicine
DX: I25.10 Atherosclerotic heart disease of native coronary artery without angina pectoris (principal); I21.4 Non-ST elevation (NSTEMI) myocardial infarction; E66.9 Obesity, unspecified; G47.33 Obstructive sleep apnea (adult) (pediatric); Z99.89 Dependence on other enabling machines and devices
CPT/HCPCS: 93010; 99204

== ENCOUNTER → 2023-02-16 08:20 | Outpatient (BNVA) | payer OTHER, SELFPAY | PROVIDERS: Visit Provider Internal Medicine | DX: I25.10 Atherosclerotic heart disease of native coronary artery without angina pectoris (principal); I10 Essential (primary) hypertension; E66.9 Obesity, unspecified; G47.33 Obstructive sleep apnea (adult) (pediatric); I25.2 Old myocardial infarction; Z99.89 Dependence on other enabling machines and devices; Z79.899 Other long term (current) drug therapy | CPT/HCPCS: 93005 ==

== ENCOUNTER 2023-08-12 14:42 | Outpatient (AMB) | payer OTHER, SELFPAY ==
[2023-08-12 15:01] VITALS: BP 122/80; PULSE 83; TEMP 36.3; O2SAT 97; BMI 34.4
--- NOTE | 2023-08-12 15:01 | AM.OFFWIN_ITS ---
Intake Vital Signs 08/12/23 15:01 Height 5 ft 8 in Weight 226 lb BMI 34.4 BP 122/80 Blood Pressure Location Lt brachial Position Sitting Pulse 83 Pulse Source Pulse Oximeter Temp 97.3 F Temp Source Temporal Artery Scan Pulse Oximetry (%) 97 Oxygen Delivery Method Room Air Intake Visit Reasons: EST/Hemorrhoids/[phone] Intake Note: pt is here today for hemorrhoid started tuesday Patient Tobacco Use Status: Current everyday Tobacco user Allergies No Known Allergies Allergy (Verified 08/12/23 15:03) Medication List - Last Reconciled 08/12/23 by Sera Santoyo NP aspirin 81 mg PO DAILY fluticasone propionate 50 mcg/actuation (Children's Flonase Allergy Relief) 1 spray intranasal DAILY hydrocortisone acetate (Anusol-HC) 25 mg SD BEDTIME metoprolol succinate ER 25 mg PO DAILY multivitamin 1 tab PO DAILY psyllium husk (aspartame) 3.4 gram (Metamucil Fiber Singles) 1 packet PO DAILY rosuvastatin 40 mg PO DAILY sennosides (senna) 17.2 mg (2 x 8.6 mg) PO BEDTIME varenicline PO PER PKG DIR Do you need a note to return to daycare/school/sports/work: Yes HPI HPI Comments History of Present Illness Details 52 y/o Male patient presents to the walk -in clinic with c/o painful Internal hemorrhoids. H/o Hemorrhoids since childhood, but in the past 2 days they have become more painful and bleeding when wiping. Reports constipation, last BM yesterday morning, hard stools and pain with defecation. Denies abd pain or diarrhea. Denies Nausea or vomiting. He has not used any OTC medications. Does admit to not drinking enough water and not obtaining enough fiber in diet. [facility] Medical History (Updated 04/24/23 @ 16:22 by Donna Romero MD) Atherosclerotic cardiovascular disease Smoker unmotivated to quit Thrombocytopenia Hx of deep venous thrombosis AUDREY on CPAP HTN (hypertension) Obesity Hyperlipidemia Hx of non-ST elevation myocardial infarction (NSTEMI) Surgical History History of heart artery stent History of coronary angioplasty Family History Father Arrhythmia Bacterial endocarditis Mother No problems noted. Daughter Asthma Thyroid cancer Hypoparathyroidism after surgical removal of thyroid gland Social History Housing: House Alcohol intake: current Alcohol intake frequency: other Patient Tobacco Use Status: Current everyday Tobacco user Cigarettes Per Day: 8 e-Cigarette/Vaping Use: Former Use Second Hand Smoke Exposure: No service: No Current occupational status: employed Cognitive needs: No Hearing needs: No Vision needs: Yes Review of Systems Const All systems reviewed & are unremarkable except as noted in HPI and below Physical Exam Vital Signs: Last Vital Signs Temp 97.3 F 08/12/23 15:01 Pulse 83 08/12/23 15:01 BP 122/80 08/12/23 15:01 Pulse Ox 97 08/12/23 15:01 Oxygen Delivery Method Room Air 08/12/23 15:01 BMI result Body Mass Index 34.4 Const General: no acute distress; No comfortable GI Inspection: Yes normal to inspection and Yes other (Large obese and round) Palpation (GI): Soft to palpation, Tenderness to palpation present (GI) periumbilically, no hepatosplenomegaly, no hernias and no masses Rectal Exam - Male: Yes normal sphincter tone, Yes Internal hemorrhoid(s) present and Yes tenderness (Around the rectal area) Assessment & Plan Assessment & Plan (1) Acute hemorrhoid: Code(s): K64.9 - Unspecified hemorrhoids Plan: - Increase Fiber intake in diet. - Drink plenty of water and be active. - Anusol for pain relief. - Stool softner for constipation. (2) Constipation: Code(s): K59.00 - Constipation, unspecified Qualifiers: Constipation type: slow transit constipation Qualified Code(s): K59.01 - Slow transit constipation Plan: - Increase Fiber intake in diet. - Drink plenty of water and be active. - Anusol for pain relief. - Stool softner for constipation. Medications: New sennosides (senna) 17.2 mg (2 x 8.6 mg) PO BEDTIME 30 tabs 0RF K59.01 - Slow t ransit constipation psyllium husk (aspartame) 3.4 gram (Metamucil Fiber Singles) 1 packet PO DAILY 30 ea 0RF K59.01 - Slow transit constipation hydrocortisone acetate (Anusol-HC) 25 mg SD BEDTIME 12 ea 0RF K64.9 - Unspecified hemorrhoids Coding Level of Care Code Est Pt Level 3 (47472) Diagnoses Acute hemorrhoid K64.9 Slow transit constipation K59.01 Constipation type: slow transit constipation Time Spent (min) 15
== END 2023-08-12 15:27 | disposition home or self-care (01) ==
PROVIDERS: PCP Internal Medicine; Visit Provider Nurse Practitioner Family
DX: K64.9 Unspecified hemorrhoids (principal); K59.01 Slow transit constipation
CPT/HCPCS: 99213

== ENCOUNTER 2023-09-30 09:20 | Outpatient (AMB) | payer OTHER, SELFPAY ==
--- NOTE | 2023-09-30 09:21 | MHC.OFFVIS ---
Intake Vital Signs 09/30/23 09:36 Height 5 ft 8 in Weight 230 lb BMI 35.0 BP 134/80 Blood Pressure Location Lt brachial Position Sitting Pulse 63 Pulse Source Pulse Oximeter Pulse Oximetry (%) 97 Oxygen Delivery Method Room Air Intake Visit Reasons: 1yr f/u AUDREY- confirmed Intake Note: Patient presents 1 year f/u for AUDREY. Allergies No Known Allergies Allergy (Verified 09/30/23 09:30) HPI HPI Comments History of Present Illness Details 52 y/o male patient presents for follow up of AUDREY on CPAP. He has received a new CPAP, Resven from [facility] an year ago. The CPAP compliance and therapy response (09/28/22-09/27/23) reviewed. Usage days 93% and average usage hours 7 hours. He is on CPAP at 6 cmH2O and the residual AHI was 0.8/hr. Pt reports he sleeps well with CPAP, from 9:30 pm to 6 am. He wakes up refreshed, has more energy during daytime. He goes to gym three times a week. The home sleep study result was mild degree of sleep apnea with increased severity in REM sleep. The AHI was 11/hr, supine AHI was 24/hr and oxygen elyse was 88%. [facility], [facility] Medical History (Updated 04/24/23 @ 16:22 by Donna Romero MD) Atherosclerotic cardiovascular disease Smoker unmotivated to quit Thrombocytopenia Hx of deep venous thrombosis AUDREY on CPAP HTN (hypertension) Obesity Hyperlipidemia Hx of non-ST elevation myocardial infarction (NSTEMI) Surgical History History of heart artery stent History of coronary angioplasty Family History Father Arrhythmia Bacterial endocarditis Mother No problems noted. Daughter Asthma Thyroid cancer Hypoparathyroidism after surgical removal of thyroid gland Social History Housing: House Alcohol intake: current Alcohol intake frequency: other Patient Tobacco Use Status: Current everyday Tobacco user Cigarettes Per Day: 8 e-Cigarette/Vaping Use: Former Use Second Hand Smoke Exposure: No service: No Current occupational status: employed Cognitive needs: No Hearing needs: No Vision needs: Yes Review of Systems Const All systems reviewed & are unremarkable except as noted in HPI and below Physical Exam Vital Signs: Last Vital Signs Pulse 63 09/30/23 09:36 BP 134/80 09/30/23 09:36 Pulse Ox 97 09/30/23 09:36 Oxygen Delivery Method Room Air 09/30/23 09:36 BMI result Body Mass Index 35.0 Const General: cooperative Nutritional Appearance: obese Orientation/consciousness: patient oriented x3 Limitations: no limitations HEENT Throat: Yes other (mallampati grade 4) Neck Neck: Yes full ROM and Yes supple Resp Effort & Inspection: normal respiratory effort and able to speak in complete sentences Neuro Other: mild right facial droop. General: patient oriented x3, gait normal and moves all extremities Cranial nerves: Yes Normal facial strength present and Yes Midline tongue present Cognition (Neuro): normal cognition Gait exam (Neuro): Normal gait present Motor exam (neuro): 5/5 motor strength present throughout, Pronator motor function not present and no tremor noted Psych Appearance: grossly normal Mental Status: mental status grossly normal Speech and movement: Normal speech and movement present Assessment & Plan Assessment & Plan (1) AUDREY on CPAP: Code(s): G47.33 - Obstructive sleep apnea (adult) (pediatric); Z99.89 - Dependence on other enabling machines and devices (2) Obesity: Code(s): E66.9 - Obesity, unspecified Plan Continue to use CPAP at 6 cmH2O as patient experiences good clinical effects. Stressed compliance, use CPAP nightly and more than 4 hours. Clean mask and tubing regularly. Wt reduction advised. Coding Level of Care Code Est Pt Level 3 (21744) Diagnoses AUDREY on CPAP G47.33; Z99.89 Obesity E66.9
[2023-09-30 09:36] VITALS: BP 134/80; PULSE 63; O2SAT 97; BMI 35.0
== END 2023-09-30 09:49 | disposition home or self-care (01) ==
PROVIDERS: Visit Provider Nurse Practitioner Family
DX: G47.33 Obstructive sleep apnea (adult) (pediatric) (principal); Z99.89 Dependence on other enabling machines and devices; E66.9 Obesity, unspecified
CPT/HCPCS: 99213

== ENCOUNTER → 2023-09-30 09:20 | Outpatient (BNVA) | payer OTHER, SELFPAY | PROVIDERS: Visit Provider Nurse Practitioner Family | DX: G47.33 Obstructive sleep apnea (adult) (pediatric) (principal); Z99.89 Dependence on other enabling machines and devices; I10 Essential (primary) hypertension; E66.9 Obesity, unspecified; I25.2 Old myocardial infarction ==

== ENCOUNTER 2023-10-24 09:39 | Outpatient (AMB) | payer OTHER, SELFPAY ==
--- NOTE | 2023-10-24 09:40 | A.OFFVIS_ITS ---
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 In the past, he was seen by [facility]. In 2021, he was admitted to [facility] with non ST-elevation myocardial infarction. At that time, he underwent circumflex stenting. Has various risk factors including smoking, obesity, obstructive sleep apnea. Unclear if this any hypertension history. Overall, he is doing quite well. No cardiac symptoms at all. Unfortunately, still smokes and unable to quit. [facility] Medical History (Updated 04/24/23 @ 16:22 by Donna Romero MD) Atherosclerotic cardiovascular disease Smoker unmotivated to quit Thrombocytopenia Hx of deep venous thrombosis AUDREY on CPAP HTN (hypertension) Obesity Hyperlipidemia Hx of non-ST elevation myocardial infarction (NSTEMI) Surgical History History of heart artery stent History of coronary angioplasty Family History Father Arrhythmia Bacterial endocarditis Mother No problems noted. Daughter Asthma Thyroid cancer Hypoparathyroidism after surgical removal of thyroid gland Social History Housing: House Alcohol intake: current Alcohol intake frequency: other Patient Tobacco Use Status: Current everyday Tobacco user Cigarettes Per Day: 8 e-Cigarette/Vaping Use: Former Use Second Hand Smoke Exposure: No service: No Current occupational status: employed Cognitive needs: No Hearing needs: No Vision needs: Yes Review of Systems Const Denies weakness ENT Denies dizziness Card Denies chest pain, Denies chest pain with activity, Denies syncope, Denies rapid heart rate, Denies pedal edema, Denies edema, Denies leg edema, Denies lightheadedness, Denies palpitations, Denies dyspnea, Denies dyspnea on exertion and Denies orthopnea Resp Denies cough, Denies dyspnea and Denies dyspnea on exertion GI Denies hematochezia and Denies change in stool character Musc Denies abnormal gait, Denies muscle cramps, Denies muscle weakness, Denies numbness, Denies radiating pain into limb and Denies tingling Neuro Denies abnormal gait, Denies dizziness, Denies syncope, Denies numbness, Denies tingling and Denies weakness Endo Denies palpitations Physical Exam Vital Signs: Last Vital Signs Pulse 76 10/24/23 09:43 BP 130/90 H 10/24/23 09:43 BMI result Body Mass Index 34.5 Const General: comfortable and no acute distress Orientation/consciousness: patient oriented x3 HEENT Other: Unremarkable Head: Yes normal to inspection Neck Neck: Yes normal visual inspection Chest Chest palpation & inspection: normal inspection of the chest Resp Auscultation: clear to auscultation bilaterally Cardio Palpation: normal PMI Heart sounds: S1 normal heart sound present, S2 normal heart sound present, no gallops, Murmur heart sound present systolic II/ and at the right sternal border and no rubs GI Palpation (GI): Soft to palpation Back/Spine/Pelvis Other: unremarkable Skin General skin exam: no rashes or lesions noted Neuro General: patient oriented x3 Extrem General: Yes normal to inspection Psych Mental Status: mental status grossly normal Assessment & Plan Assessment & Plan (1) Atherosclerotic cardiovascular disease: Code(s): I25.10 - Atherosclerotic heart disease of [place] coronary artery without angina pectoris (2) NSTEMI (non-ST elevated myocardial infarction): Code(s): I21.4 - Non-ST elevation (NSTEMI) myocardial infarction (3) Obesity: Code(s): E66.9 - Obesity, unspecified (4) AUDREY on CPAP: Code(s): G47.33 - Obstructive sleep apnea (adult) (pediatric); Z99.89 - Dependence on other enabling machines and devices (5) Smoking: Code(s): F17.200 - Nicotine dependence, unspecified, uncomplicated Plan Cardiac studies reviewed. Echocardiogram with LVEF of 55-60%. No wall motion abnormalities. No significant valvular issues. [id number] LVH. Cardiac catheterization reviewed from March 2022. Circumflex with mid 90% stenosis. Status post PCI. Otherwise, diffuse CAD somewhat in the moderate range. Clinically, absolutely no symptoms. Hence mainly needs aggressive risk factor modification. Weight loss as much able. We discussed about smoking and he states that he is difficulty quitting. He und erstands the importance of this. Continue CPAP for AUDREY. His blood pressures have generally been okay but today it is borderline. Lifestyle measures should help. In the past, almost all the blood pressures have been in normal range. Continue statins. Last LDL 57 mg/dL. Follow-up in 1 year. In the interim, he will call with any concerns. Medications: Changed From varenicline PO PER PKG DIR 53 ea 0RF F17.210 - Nicotine dependence, cigarettes, uncomplicated To varenicline PO PER PKG DIR F17.210 - Nicotine dependence, cigarettes, uncomplicated Coding Level of Care Code Est Pt Level 4 (26667) Diagnoses Atherosclerotic cardiovascular disease I25.10 NSTEMI (non-ST elevated myocardial infarction) I21.4 Obesity E66.9 AUDREY on CPAP G47.33; Z99.89 Smoking F17.200
[2023-10-24 09:43] VITALS: BP 130/90; PULSE 76; BMI 34.5
== END 2023-10-24 09:58 | disposition home or self-care (01) ==
PROVIDERS: PCP Internal Medicine; Visit Provider Internal Medicine
DX: I25.10 Atherosclerotic heart disease of native coronary artery without angina pectoris (principal); I21.4 Non-ST elevation (NSTEMI) myocardial infarction; E66.9 Obesity, unspecified; G47.33 Obstructive sleep apnea (adult) (pediatric); Z99.89 Dependence on other enabling machines and devices; F17.200 Nicotine dependence, unspecified, uncomplicated
CPT/HCPCS: 99214

== ENCOUNTER → 2023-10-24 09:39 | Outpatient (BNVA) | payer OTHER, SELFPAY | PROVIDERS: PCP Internal Medicine; Visit Provider Internal Medicine ==

== ENCOUNTER 2024-10-01 07:55 | Outpatient (AMB) | payer OTHER, SELFPAY ==
--- NOTE | 2024-10-01 08:02 | A.OFFVIS_ITS ---
Vital Signs 10/01/24 08:03 Height 5 ft 8 in Weight 240 lb BMI 36.5 BP 130/80 Blood Pressure Location Rt brachial Position Sitting Pulse 70 Pulse Source Pulse Oximeter Pulse Oximetry (%) 98 Oxygen Delivery Method Room Air Intake Visit Reasons: follow up AUDREY Intake Note: Patient presents follow up AUDREY. 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 Accompanied by: Self / Same As Patient Allergies No Known Allergies Allergy (Verified 10/01/24 08:06) Medication List - Last Reconciled 10/01/24 by LESLY Pollard aspirin 81 mg PO DAILY fluticasone propionate 50 mcg/actuation (Children's Flonase Allergy Relief) 1 spray intranasal DAILY metoprolol succinate ER 25 mg PO DAILY multivitamin 1 tab PO DAILY psyllium husk (aspartame) 3.4 gram (Metamucil Fiber Singles) 1 packet PO DAILY rosuvastatin 40 mg PO DAILY varenicline tartrate PO PER PKG DIR HPI Comments Details: Chief Complaint Concerns about obstructive sleep apnea management and obtaining CPAP supplies- though now thinks CPAP the supply issue has been addressed. Interval History- The patient is a 53-year-old male presenting with obstructive sleep apnea. - No changes in medical history since the previous visit; no hospitalizations or new diagnoses. - Continued use of ResMed CPAP device with compliance reported as 99%, set to 8 cm H2O pressure. - Experiences residual fatigue despite CPAP usage. - No additional issues with the current CPAP machine; previously used Resvent but returned to ResMed due to dissatisfaction. - Patient to have a vitamin D level check in upcoming labs due to fatigue concerns. Sleep - CPAP used nightly with an average usage of 7 hours and 23 minutes. - Consistent CPAP compliance of 99%. 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 Substance Use Physical ExamDoes patient have sufficient PAP supplies? Yes Does patient clean PAP supplies on a regular basis? Yes Does the patient use distilled water in their PAP machine water reservoir? Yes PAP compliance report reviewed. Compliance report date range: June 29, 2024 - September 26, 2024 Overall usage: 99 percent Usage greater than 4 hours: 99 percent PAP setting: CPAP 8 cmH2O Average usage on days used: 7 hours and 23 minutes Average mask leakage: 26 LPM Residual AHI: 1.3 per hour [facility] Medical History (Updated 10/01/24 @ 08:30 by LESLY Pollard) Arthritis Atherosclerotic cardiovascular disease Smoker unmotivated to quit Thrombocytopenia Hx of deep venous thrombosis AUDREY on CPAP HTN (hypertension) Obesity Hyperlipidemia Hx of non-ST elevation myocardial infarction (NSTEMI) Surgical History History of heart artery stent History of coronary angioplasty Family History Father Arrhythmia Bacterial endocarditis Mother No problems noted. Daughter Asthma Thyroid cancer Hypoparathyroidism after surgical removal of thyroid gland Social History Housing: House Alcohol intake: current Alcohol intake frequency: other Patient Tobacco Use Status: Current everyday Tobacco user Cigarettes Per Day: 8 e-Cigarette/Vaping Use: Former Use Second Hand Smoke Exposure: No service: No Current occupational status: employed Cognitive needs: No Hearing needs: No Vision needs: Yes Physical Exam Vital Signs: Last Vital Signs Pulse 70 10/01/24 08:03 BP 130/80 10/01/24 08:03 Pulse Ox 98 10/01/24 08:03 Oxygen Delivery Method Room Air 10/01/24 08:03 BMI result Body Mass Index 36.5 Const General: cooperative and no acute distress Orientation/consciousness: patient oriented x3 Resp Effort & Inspection: normal respiratory effort and able to speak in complete sentences Neuro General: patient oriented x3 Cranial nerves: Yes CN's II-XII intact bilaterally Cognition (Neuro): normal cognition Psych Appearance: grossly normal Mental Status: mental status grossly normal Speech and movement: Normal speech and movement present Affect: normal affect Attitude: cooperative Assessment & Plan Assessment & Plan (1) AUDREY on CPAP: Code(s): G47.33 - Obstructive sleep apnea (adult) (pediatric); Z99.89 - Dependence on other enabling machines and devices Category: Medical (2) Fatigue: Code(s): R53.83 - Other fatigue Category: Medical Plan Discussion Notes During the discussion, I reviewed the patient's concerns regarding ongoing fatigue despite high compliance with CPAP therapy. I explained that the CPAP compliance data seems optimal, with satisfactory management of apnea events. I recommended checking the vitamin D level in upcoming routine labs to investigate potential contributing factors to fatigue. I emphasized the importance of maintaining physical activity, highlighted the possibility of arthritis-related issues affecting energy levels, and suggested that his primary physician explore further. I mentioned alternative medications for residual fatigue if traditional evaluations do not reveal any deficiencies or other conditions. No additional procedural discussions took place. Plan Continue ResMed CPAP therapy. - Continue to use CPAP 8 cm H2O with EPR off nightly with a goal of greater than 4 hours nightly, as patient is experiencing good clinical effect from use. - Clean and change PAP supplies routinely, including filters, masks, tubing, and water reservoir. - Use distilled water in PAP water resorvoir. Obtain vitamin D test for fatigue evaluation. Discuss arthritis concerns and energy levels with primary provider. Consider alternate therapies if fatigue persists without identifiable cause. Patient was informed and verbally consented to the use of an ambient scribe for clinic note documentation during this visit. Follow-up upon review of above and in 12 months or sooner prn. Orders: Orders Vitamin D 25-OH (D2 and D3) Today M19.90 - Unspecified osteoarthritis, unspecified site, R53.83 - Other fatigue Coding Level of Care Code Est Pt Level 3 (93327) Diagnoses AUDREY on CPAP G47.33; Z99.89 Fatigue R53.83
[2024-10-01 08:03] VITALS: BP 130/80; PULSE 70; O2SAT 98; BMI 36.5
== END 2024-10-01 08:36 | disposition home or self-care (01) ==
PROVIDERS: PCP Internal Medicine; Visit Provider Nurse Practitioner Family
DX: G47.33 Obstructive sleep apnea (adult) (pediatric) (principal); Z99.89 Dependence on other enabling machines and devices; R53.83 Other fatigue
CPT/HCPCS: 99213

== ENCOUNTER 2024-10-20 07:26 | Outpatient (REF) | payer OTHER, SELFPAY ==
[2024-10-20 12:32] LABS: Alanine Aminotransferase 43 U/L (0-40); Anion Gap 10 (12-20); Aspartate Amino Transferase 36 U/L (5-37); Blood Urea Nitrogen 13 mg/dL (9-16); Carbon Dioxide 24 mmol/L (22-29); Chloride 110 mmol/L (96-108); Cholesterol 116 mg/dL (<200); Estimated Glomerular Filt Rate > 60; Glucose Fasting 95 mg/dL (60-99); HDL Cholesterol 26 mg/dL (>40); LDL Cholesterol Calculated 65 mg/dL (<100); Potassium 4.4 mmol/L (3.3-5.1); Sodium 140 mmol/L (135-145); Triglycerides 129 mg/dL (<150)
[2024-10-26 15:42] LABS: Vitamin D 25-OH, D2 <4 ng/mL; Vitamin D 25-OH, D3 27 ng/mL; Vitamin D 25-OH, Total 27 ng/mL (30-100)
== END 2024-10-20 07:27 | disposition home or self-care (01) ==
LOC: HO.HMGCLDS 07:26
PROVIDERS: Nurse Practitioner Family; PCP Internal Medicine; Visit Provider Internal Medicine
DX: I10 Essential (primary) hypertension (principal); E78.2 Mixed hyperlipidemia; I25.2 Old myocardial infarction; M19.90 Unspecified osteoarthritis, unspecified site; R53.83 Other fatigue; M79.10 Myalgia, unspecified site
CPT/HCPCS: 36415; 80048; 80061; 82306; 82550; 84450; 84460

== ENCOUNTER 2024-10-22 08:06 | Outpatient (AMB) | payer OTHER, SELFPAY ==
[2024-10-22 08:14] VITALS: BP 110/70; BMI 35.5
--- NOTE | 2024-10-22 08:14 | MHC.OFFVIS ---
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 In the past, he was seen by [facility]. In 2021, he was admitted to [facility] with non ST-elevation myocardial infarction. At that time, he underwent circumflex stenting. Has various risk factors including smoking, obesity, obstructive sleep apnea. Since last seen, he states that he has been having some chest pressure/discomfort off and on. However, it is nonexertional and can happen any time. His job is very physical and he does not get pains during that time but can happen randomly. Hence not very clear as to what the pain is all about. [facility] Medical History (Updated 10/01/24 @ 08:30 by LESLY Pollard) Arthritis Atherosclerotic cardiovascular disease Smoker unmotivated to quit Thrombocytopenia Hx of deep venous thrombosis AUDREY on CPAP HTN (hypertension) Obesity Hyperlipidemia Hx of non-ST elevation myocardial infarction (NSTEMI) Surgical History History of heart artery stent History of coronary angioplasty Family History Father Arrhythmia Bacterial endocarditis Mother No problems noted. Daughter Asthma Thyroid cancer Hypoparathyroidism after surgical removal of thyroid gland Social History Housing: House Alcohol intake: current Alcohol intake frequency: other Patient Tobacco Use Status: Current everyday Tobacco user Cigarettes Per Day: 8 e-Cigarette/Vaping Use: Former Use Second Hand Smoke Exposure: No service: No Current occupational status: employed Cognitive needs: No Hearing needs: No Vision needs: Yes Review of Systems Const Denies chills, Denies fatigue, Denies fever(s), Denies weight gain and Denies weight loss ENT Denies dizziness Card Denies chest pain, Denies leg edema, Denies lightheadedness, Denies palpitations, Denies dyspnea on exertion, Denies orthopnea and Denies other Resp Denies cough and Denies dyspnea on exertion GI Denies hematochezia and Denies change in stool character Musc Denies abnormal gait, Denies muscle weakness, Denies numbness, Denies radiating pain into limb and Denies tingling Neuro Denies abnormal gait, Denies dizziness, Denies numbness and Denies tingling Endo Denies fatigue and Denies palpitations Physical Exam Vital Signs: Last Vital Signs BP 110/70 10/22/24 08:14 BMI result Body Mass Index 35.5 Const General: comfortable and no acute distress Orientation/consciousness: patient oriented x3 HEENT Other: Unremarkable Head: Yes normal to inspection Neck Neck: Yes normal visual inspection Chest Chest palpation & inspection: normal inspection of the chest Resp Auscultation: clear to auscultation bilaterally Cardio Palpation: normal PMI Heart sounds: S1 normal heart sound present, S2 normal heart sound present, no gallops, no murmurs and no rubs GI Palpation (GI): Soft to palpation Back/Spine/Pelvis Other: unremarkable Skin General skin exam: no rashes or lesions noted Neuro General: patient oriented x3 Extrem General: Yes normal to inspection Psych Mental Status: mental status grossly normal Office Procedures EKG Details: EKG with underlying sinus rhythm at 63/Min; low-voltage complexes; cannot exclude old septal/inferior infarct; normal GA [place]. [id number], Complete Assessment & Plan Assessment & Plan (1) Atherosclerotic cardiovascular disease: Code(s): I25.10 - Atherosclerotic heart disease of [place] coronary artery without angina pectoris Category: Medical (2) NSTEMI (non-ST elevated myocardial infarction): Code(s): I21.4 - Non-ST elevation (NSTEMI) myocardial infarction Category: Medical (3) Obesity: Code(s): E66.9 - Obesity, unspecified Category: Medical (4) AUDREY on CPAP: Code(s): G47.33 - Obstructive sleep apnea (adult) (pediatric); Z99.89 - Dependence on other enabling machines and devices Category: Medical (5) Smoking: Code(s): F17.200 - Nicotine dependence, unspecified, uncomplicated Category: Social Hx Plan Cardiac studies reviewed. Echocardiogram in the past with LVEF of 55-60%. No wall motion abnormalities. No significant valvular issues. [id number] LVH. Cardiac catheterization reviewed from 2021. Circumflex with mid 90% stenosis. Status post PCI. Otherwise, diffuse CAD somewhat in the moderate range. With regard to symptoms of chest discomfort, unclear etiology. Nonexertional, but still needs assessment for cardiac etiology. We will obtain an exercise stress echocardiogram. Otherwise, aggressive risk factor modification. Ideally, should quit smoking completely. Blood pressure seems stable. Lipids are well controlled. CPAP for AUDREY. We will see him after the stress test. If any interim concerns, he will contact us or seek emergency help. Coding Level of Care Code Est Pt Level 4 (61269) Complex EM visit Add On G2211 Diagnoses Atherosclerotic cardiovascular disease I25.10 NSTEMI (non-ST elevated myocardial infarction) I21.4 Obesity E66.9 AUDREY on CPAP G47.33; Z99.89 Smoking F17.200 CPT Codes EKG - CPT: 08612-[id number], Complete ([id number])
== END 2024-10-22 08:35 | disposition home or self-care (01) ==
LOC: HO.HCS 08:06
PROVIDERS: PCP Internal Medicine; Visit Provider Internal Medicine
DX: I25.10 Atherosclerotic heart disease of native coronary artery without angina pectoris (principal); I21.4 Non-ST elevation (NSTEMI) myocardial infarction; E66.9 Obesity, unspecified; G47.33 Obstructive sleep apnea (adult) (pediatric); Z99.89 Dependence on other enabling machines and devices; F17.200 Nicotine dependence, unspecified, uncomplicated
CPT/HCPCS: 93010; 99214

== ENCOUNTER → 2024-10-22 08:06 | Outpatient (BNVA) | payer OTHER, SELFPAY | PROVIDERS: PCP Internal Medicine; Visit Provider Internal Medicine | DX: Z00.01 Encounter for general adult medical examination with abnormal findings (principal); I21.4 Non-ST elevation (NSTEMI) myocardial infarction; I25.10 Atherosclerotic heart disease of native coronary artery without angina pectoris; E66.9 Obesity, unspecified; G47.33 Obstructive sleep apnea (adult) (pediatric); M79.10 Myalgia, unspecified site; E78.2 Mixed hyperlipidemia; E55.9 Vitamin D deficiency, unspecified; F17.210 Nicotine dependence, cigarettes, uncomplicated; Z99.89 Dependence on other enabling machines and devices | CPT/HCPCS: 93005; 96127 ==

== ENCOUNTER 2024-10-22 11:52 | Outpatient (AMB) | payer OTHER, SELFPAY ==
--- NOTE | 2024-10-22 12:32 | MHC.PC.OV ---
Vital Signs 10/22/24 12:34 Height 5 ft 8 in Weight 233 lb 8 oz BMI 35.5 BP 112/78 Blood Pressure Location Lt brachial Position Sitting Respiration 17 Pulse 62 Pulse Source Pulse Oximeter Temp 97.9 F Temp Source Oral Pulse Oximetry (%) 96 Oxygen Delivery Method Room Air Intake Visit Reasons: Annual PE Intake Note: Pt is here today for his annual physical. Allergies No Known Allergies Allergy (Verified 10/29/24 01:09) Medication List - Last Reconciled 10/29/24 by Donna Romero MD aspirin 81 mg PO DAILY cholecalciferol (vitamin D3) 1,250 mcg PO QWEEK 12 days cholecalciferol (vitamin D3) 1,250 mcg PO QWEEK fluticasone propionate 50 mcg/actuation (Children's Flonase Allergy Relief) 1 spray intranasal DAILY metoprolol succinate ER 25 mg PO DAILY multivitamin 1 tab PO DAILY psyllium husk (aspartame) 3.4 gram (Metamucil Fiber Singles) 1 packet PO DAILY rosuvastatin 40 mg PO DAILY Tobacco use date assessed: 10/22/24 Dental Screening Dental Screen Date: 10/22/24 Did you have a dental visit in the last 12 months?: Yes Did you have a dental problem in the last 6 months where you did not have access to dental care?: No Was dental information given to patient?: Patient has dentist HPI Annual PE HPI Details 53 year-old male with history of non STEMI, obesity, obstructive sleep apnea on CPAP, here today for his physical exam He is currently on 81 mg aspirin daily, metoprolol succinate ER 25 mg daily, and rosuvastatin 40 mg daily . His blood pressure has been stable and controlled on present treatment, with latest fasting labs showing lipids within normal limits except for low HDL cholesterol normal fasting glucose and low vitamin-D level. He has obstructive sleep apnea compliant with CPAP. Recently seen by [facility] , previously being seen by [facility] group, who ordered a stress test to be done, and strongly advise patient to stop smoking.. Complains of occasional aching pain in arms and thighs. Has a physically demanding job, denies any history of trauma [facility], [facility] Medical History Arthritis Atherosclerotic cardiovascular disease Smoker unmotivated to quit Thrombocytopenia Hx of deep venous thrombosis AUDREY on CPAP HTN (hypertension) Obesity Hyperlipidemia Hx of non-ST elevation myocardial infarction (NSTEMI) Surgical History History of heart artery stent History of coronary angioplasty Family History Father Arrhythmia Bacterial endocarditis Mother No problems noted. Daughter Asthma Thyroid cancer Hypoparathyroidism after surgical removal of thyroid gland Social History Housing: House Alcohol intake: current Alcohol intake frequency: other Patient Tobacco Use Status: Current everyday Tobacco user Cigarettes Per Day: 8 e-Cigarette/Vaping Use: Former Use Second Hand Smoke Exposure: No service: No Current occupational status: employed Cognitive needs: No Hearing needs: No Vision needs: Yes Questionnaire PHQ-9 Over the last 2 weeks, how often have you been bothered by any of the following problems? 1. Little interest or pleasure in doing things: not at all 2. Feeling down, depressed, or hopeless: not at all 3. Trouble falling or staying asleep, or sleeping too much: several days 4. Feeling tired or having little energy: several days 5. Poor appetite or overeating: not at all 6. Feeling bad about yourself - or that you are a failure or have let yourself or your family down: not at all 7. Trouble concentrating on things, such as reading the newspaper or watching television: not at all 8. Moving or speaking so slowly that other people could have noticed. Or the opposite - being so fidgety or restless that you have been moving around a lot more than usual: not at all 9. Thoughts that you would be better off or of hurting yourself in some way: not at all Total score: 2 Depression Screening Interpretation: Negative Depression Screening Done: Yes 07255 - PHQ-9 Billing: Yes Source: Developed by Drs. Cedric Juan, Ofelia Quiñones, Robert Choudhury and colleagues, with an educational carlos from [employer]. Thrive Questionnaire Date Thrive assessed: 10/22/24 I am a: Patient What is your living situation today?: I have a steady place to live Within the past 12 months, did the food you bought not last and you didn't have the money to get more?: Never true Within the past 12 months, did you worry whether your food would run out before you got money to buy more?: Never true Do you have trouble paying for medicines?: No Do you have trouble getting transportation to medical appointments?: No Do you have trouble paying your heating and electricity bill?: No Do you have trouble taking care of your child, family member or friend?: No Do you have trouble with day-to-day activities such as bathing, preparing meals, shopping, managing finances, etc.?: No Are you currently unemployed and looking for a job?: No Are you interested in more education?: No Please select the resources that you would like help with: None Currently or been in a relationship where the following occur: No concerns reported THRIVE Score: 0 AUDIT C Alcohol Use Questionnaire (AUDIT-C) 1. How often do you have a drink containing alcohol?: Monthly or less 2. How many drinks containing alcohol do you have on a typical day when you are drinking?: 1 or 2 3. How often do you have six or more drinks on one occasion?: Never Total Score: 1 Score Reviewed/Action Taken: Yes TOBIAS-7 AMB Questionnaire TOBIAS-7 Date TOBIAS - 7 assessed: 10/22/24 Feeling nervous, anxious, or on edge: 0 = Not at all Not being able to stop or control worryin = Not at all Worrying too much about different things: 0 = Not at all Trouble relaxin = Not at all Being so restless that it is hard to sit still: 0 = Not at all Becoming easily annoyed or irritable: 0 = Not at all Feeling afraid as if something awful might happen: 0 = Not at all Total TOBIAS-7 score (0-4 normal; 5-9 mild; 10-14 moderate; 15-21 severe): 0 Source: Developed by Drs. Cedric Juan, Ofelia Quiñones, Robert Choudhury and colleagues, with an educational carlos from [employer]. TOBIAS-7 Assessment Billing TOBIAS-7 Assessment Tool: TOBIAS-7 Assessment 68953 Review of Systems Const Denies chills, Denies fatigue, Denies fever(s), Denies weight gain and Denies weight loss Eyes Denies change in vision ENT Reports Normal hearing present and Denies dizziness Card Denies chest pain, Denies leg edema, Denies lightheadedness, Denies palpitations, Denies dyspnea on exertion, Denies orthopnea and Denies other Resp Denies cough and Denies dyspnea on exertion GI Denies hematochezia and Denies change in stool character Reports no additional complaints Musc Denies abnormal gait, Denies muscle weakness, Denies numbness, Denies radiating pain into limb and Denies tingling Skin/Breast Denies lesions and Denies rash Neuro Reports Normal hearing present, Denies abnormal gait, Denies dizziness, Denies numbness and Denies tingling Psych Reports no additional complaints Endo Denies fatigue and Denies palpitations Sherwin/Lymph Reports no additional complaints Aller/Immun Reports no additional complaints Physical exam (Primary Care) Vital Signs: Last Vital Signs Temp 97.9 F 10/22/24 12:34 Pulse 62 10/22/24 12:34 Resp 17 10/22/24 12:34 BP 112/78 10/22/24 12:34 Pulse Ox 96 10/22/24 12:34 Oxygen Delivery Method Room Air 10/22/24 12:34 BMI result Body Mass Index 35.5 BMI Assessment/Plan discussion: High BMI High, discussed plan: lifestyle, weight reduction, dietary and physical activity Tobacco/Smoking Status: Tobacco use Status Tobacco use date assessed 10/22/24 10/22/24 12:36 Patient Tobacco Use Status Current everyday Tobacco 10/22/24 12:36 e-Cigarette/Vaping Use Former Use 10/22/24 12:36 Are you ready to quit: No Tobacco cessation counseling provided: Yes Items discussed: Other PHQ-9: PHQ-9 Score PHQ-9: Total score 2 10/22/24 13:11 Depression Screening Interpretation: Negative Thrive Assessment: Date of Thrive Assessment Date Thrive assessed 10/22/24 10/22/24 12:42 Currently or been in a relationship where the following occur: No concerns reported Const Other: Alert oriented x3, no acute distress noted ambulatory normal gait Nutritional Appearance: obese Orientation/consciousness: patient oriented x3 HENMT Head: Yes normocephalic and Yes atraumatic Ears: TM's normal bilaterally General nose exam: Normal external nose present Face and sinus: Yes face symmetric Mouth: Normal oral and palatal mucosa present and moist mucous membranes Eyes General: appearance normal, both eyes and all related structures Neck Neck: Yes full ROM, Yes no lymphadenopathy and Yes supple Resp Effort & Inspection: normal respiratory effort and able to speak in complete sentences Auscultation: clear to auscultation bilaterally Cardio Other: S1-S2 present regular rate and rhythm Bruits: no abdominal aortic bruits GI Inspection: Yes obesity Palpation (GI): No Abdominal aortic bruit present, Soft to palpation, nontender, no guarding and no masses Auscultation: normal bowel sounds Back/Spine/Pelvis Back: No back tenderness Skin General skin exam: no rashes or lesions noted Neuro General: patient oriented x3, gait normal, Normal light touch and pain sensation, no focal motor deficits and CN's II-XI intact bilaterally Cranial nerves: Yes Normal hearing present Extrem General: Yes full ROM, Yes no joint enlargement, Yes no calf tenderness and Yes normal gait Psych Appearance: grossly normal and well kempt Mental Status: mental status grossly normal Affect: normal affect Results Reviewed Results Reviewed: Name: Cedric Long Age/Sex: 53/M : 1970 Unit#: [id number] Attend Dr: Donna Romero MD Re10/20/24 Status: DEP REF Location: [facility] Disch: SPEC : [id number] [place]AL[place]: 10/20/24 STATUS: COMP REQ : [id number] RECD: 10/20/24-[address]: Donna Romero MD COMP: 10/20/241232 ENTERED: 10/20/[address] [facility] [address]: ORDERED: Met Prof Fast, AST, ALT, Lipid Panel Test Result Flag Reference Sodium 140 135-145 mmol/L Potassium 4.4 3.3-5.1 mmol/L CL 110 H 96-108 mmol/L CO2 24 22-29 mmol/L Gap 10 L 12-20 BUN 13 9-16 mg/dL Creat 0.84 0.5-1.4 mg/dL eGFR > 60 Chronic Kidney Disease: Estimated GFR < 60 mL/min/1.73m2 Severe Kidney Disease: Estimated GFR < 15 mL/min/1.73m2 FBS 95 60-99 mg/dL CA 9.0 8.4-10.2 mg/dL AST (GOT) 36 5-37 U/L ALT (GPT) 43 H 0-40 U/L Triglyceride 129 <150 mg/dL Desirable Triglyceride: less than 150 mg/dL Borderline High Triglyceride 150-199 mg/dL High Triglyceride: 200-499 mg/dL Very High Triglyceride: greater than or equal to 5OO mg/dL Cholesterol 116 <200 mg/dL Desirable Cholesterol: less than 200 mg/dL Borderline High Cholesterol: 200-239 mg/dL High Cholesterol: greater than 239 mg/dL LDL Calculated 65 <100 mg/dL Desirable LDL: less than 100 mg/dL Near Optimal/Above Optimal LDL: 110-129 mg/dL Borderline High LDL: 130-159 mg/dL High LDL: 160-189 mg/dL Very High LDL: greater than or equal to 190 mg/dL HDL 26 L >40 mg/dL Desirable HDL: greater than 40 mg/dL Note: This HDL assay may give artificially low results in patients with liver disease. Laboratory Tests 10/20/24 07:39 25-OH Vitamin D Total 27 L Coding Level of Care Code Est Pt Prev Care 40-64y(58191) Diagnoses Annual visit for general adult medical examination with abnormal findings Z00.01 Muscle pain M79.10 Moderate mixed hyperlipidemia not requiring statin therapy E78.2 Hyperlipidemia type: moderate mixed hyperlipidemia not requiring statin therapy Smoker unmotivated to quit F17.200 Atherosclerotic cardiovascular disease I25.10 Vitamin D deficiency E55.9 Additional Codes TOBIAS-7 Assessment Billing - TOBIAS-7 Assessment Tool: TOBIAS-7 Assessment 60602 ([id number]) PHQ-9 - 81341 - PHQ-9 Billing: Yes ([id number]) Assessment & Plan Assessment & Plan (1) Annual visit for general adult medical examination with abnormal findings: Code(s): Z00.01 - Encounter for general adult medical examination with abnormal findings Plan: Fasting lab results reviewed with patient. Recommended dental visit every 6 months and regular eye exams, at least every 2 years. Instructed do regular self testicular exam check for any mass. Cologuard test ordered for colon cancer screening. Patient does not want to get any vaccines (2) Muscle pain: Code(s): M79.10 - Myalgia, unspecified site Plan: Will check muscle enzymes as needed if there is any relation to his rosuvastatin intake (3) Hyperlipidemia: Code(s): E78.5 - Hyperlipidemia, unspecified Category: Medical Qualifiers: Hyperlipidemia type: moderate mixed hyperlipidemia not requiring statin therapy Qualified Code(s): E78.2 - Mixed hyperlipidemia Plan: Latest fasting lipid levels are within normal limits, currently on rosuvastatin 40 mg daily (4) Smoker unmotivated to quit: Code(s): F17.200 - Nicotine dependence, unspecified, uncomplicated Category: Social Hx Plan: Patient strongly advised to stop smoking, as smoking damages blood vessels, degenerative of joints and spine, damage to lungs and heart., predisposes to developing certain cancers like lung, breast, bladder, colon. Recommended to try decreasing cigarette use by 1-2 cigarettes a day. Advised to monitor what triggers are for smoking so that this can be discussed on the next office visit. We can discuss different options to quit smoking when ready. (5) Atherosclerotic cardiovascular disease: Code(s): I25.10 - Atherosclerotic heart disease of [place] coronary artery without angina pectoris Category: Medical Plan: Continue on aspirin 81 mg daily and metoprolol succinate ER 25 mg daily reinforced importance of getting blood pressure and cholesterol levels under good control. Recently seen by Cardiology who ordered stress test with done (6) Vitamin D deficiency: Code(s): E55.9 - Vitamin D deficiency, unspecified Category: Medical Plan: Advised to start taking [id number] vitamin-D 3 supplements at least 2000 units daily Orders: Orders Lipid Panel 10/20/24 E78.2 - Mixed hyperlipidemia, I10 - Essential (primary) hypertension, I25.2 - Old myocardial infarction Creatine Kinase Total 10/22/24 M79.10 - Myalgia, unspecified site Lipid Panel 01/29/25 E66.9 - Obesity, unspecified, E78.2 - Mixed hyperlipidemia, I25.10 - Atherosclerotic heart disease of [place] coronary artery without angina pectoris Alanine Aminotransferase 01/29/25 E66.9 - Obesity, unspecified, E78.2 - Mixed hyperlipidemia, I25.10 - Atherosclerotic heart disease of [place] coronary artery without angina pectoris Aspartate Amino Transferase 01/29/25 E66.9 - Obesity, unspecified, E78.2 - Mixed hyperlipidemia, I25.10 - Atherosclerotic heart disease of [place] coronary artery without angina pectoris Creatine Kinase Total 01/29/25 E66.9 - Obesity, unspecified, E78.2 - Mixed hyperlipidemia, I25.10 - Atherosclerotic heart disease of [place] coronary artery without angina pectoris Alanine Aminotransferase 10/20/24 E78.2 - Mixed hyperlipidemia, I10 - Essential (primary) hypertension, I25.2 - Old myocardial infarction Aspartate Amino Transferase 10/20/24 E78.2 - Mixed hyperlipidemia, I10 - Essential (primary) hypertension, I25.2 - Old myocardial infarction Basic Metabolic Panel Fasting 10/20/24 E78.2 - Mixed hyperlipidemia, I10 - Essential (primary) hypertension, I25.2 - Old myocardial infarction Referrals Cologuard Test Z12.11 - Encounter for screening for malignant neoplasm of colon, Z12.12 - Encounter for screening for malignant neoplasm of rectum
[2024-10-22 12:34] VITALS: BP 112/78; PULSE 62; RESP 17; TEMP 36.6; O2SAT 96; BMI 35.5
== END 2024-10-22 14:02 | disposition home or self-care (01) ==
LOC: HO.HMCC 11:53
PROVIDERS: PCP Internal Medicine; Visit Provider Internal Medicine
DX: Z00.01 Encounter for general adult medical examination with abnormal findings (principal); M79.10 Myalgia, unspecified site; E78.2 Mixed hyperlipidemia; F17.200 Nicotine dependence, unspecified, uncomplicated; I25.10 Atherosclerotic heart disease of native coronary artery without angina pectoris; E55.9 Vitamin D deficiency, unspecified

== ENCOUNTER → 2024-11-13 08:18 | Outpatient (REF) | payer OTHER, SELFPAY ==
--- NOTE | 2024-11-13 08:20 | CA_ITS ---
Acquisition Time: 2024-11-13 08:26:27 Total Exercise Time: 00:09:01 Test Indications: CP Medications: SEE H&P Protocol: ALISSA Max HR: 127 BPM 75% of Pred: 168 BPM Max BP: 168/84 mmHG Max Work Load: 8.0 METS Exercise stress test with exercise 9 mins 1 sec of Alissa Protocol, held at Stage 2 with speed upto 2.5mph due to right leg discomfort, able to increase incline to 15%, achieving 76% MPHR (took his metoprolol night before), with reports of right leg numbness, discomfort and SOB, requesting to stop, no chest pain, without any arrythmias, with normotensive response to exercise. Without EKG changes at the achieved workload. In recovery, breathing returned to baseline and leg discomfort improved. Echo images obtained by tech at rest and post peak exercise. Definity contrast utilized. Test reviewed with Dr. Krause. Referred By: Aaron Sheppard Electronically Signed By: Devyn Carbajal
== END ==
LOC: HO.CARD 08:18
PROVIDERS: PCP Internal Medicine; Visit Provider Internal Medicine
DX: R07.2 Precordial pain (principal); I25.10 Atherosclerotic heart disease of native coronary artery without angina pectoris
CPT/HCPCS: 93350; Q9957

== ENCOUNTER → 2024-11-13 08:20 | Outpatient (BNV) | payer OTHER, SELFPAY | PROVIDERS: PCP Internal Medicine | DX: R07.2 Precordial pain (principal) | CPT/HCPCS: 93016; 93018; 93350; 93352 ==

== ENCOUNTER 2024-12-31 14:19 | Outpatient (AMB) | payer OTHER, SELFPAY ==
[2024-12-31 14:28] VITALS: BP 110/60; PULSE 72; BMI 35.3
--- NOTE | 2024-12-31 14:28 | A.OFFVIS_ITS ---
Vital Signs 12/31/24 14:28 Height 5 ft 8 in Weight 232 lb BMI 35.3 BP 110/60 Blood Pressure Location Lt brachial Position Sitting Pulse 72 Pulse Source Pulse Oximeter Intake Visit Reasons: r/s 12/10/24 6 wks followup/stress echo Allergies No Known Allergies Allergy (Verified 10/29/24 01:09) Medication List - Last Reconciled 12/31/24 by Aaron Sheppard MD aspirin 81 mg PO DAILY cholecalciferol (vitamin D3) 1,250 mcg PO QWEEK fluticasone propionate 50 mcg/actuation (Children's Flonase Allergy Relief) 1 spray intranasal DAILY metoprolol succinate ER 25 mg PO DAILY multivitamin 1 tab PO DAILY psyllium husk (Metamucil Fiber Singles) 1 packet PO DAILY PRN rosuvastatin 40 mg PO DAILY HPI Comments Details: Cedric returns for follow-up. In the past, he was seen by [facility]. In 2021, he was admitted to [facility] with non ST-elevation myocardial infarction. At that time, he underwent circumflex stenting. Has various risk factors including smoking, obesity, obstructive sleep apnea. During a prior visit, he was describing nonexertional chest pains. That led to a stress test which was unremarkable. Today, he describes rather discomfort in the right leg with physical activity. Not clear if it is claudication or not. FORMERLY [facility] Medical History Arthritis Atherosclerotic cardiovascular disease Smoker unmotivated to quit Thrombocytopenia Hx of deep venous thrombosis AUDREY on CPAP HTN (hypertension) Obesity Hyperlipidemia Hx of non-ST elevation myocardial infarction (NSTEMI) Surgical History History of heart artery stent History of coronary angioplasty Family History Father Arrhythmia Bacterial endocarditis Mother No problems noted. Daughter Asthma Thyroid cancer Hypoparathyroidism after surgical removal of thyroid gland Social History Housing: House Alcohol intake: current Alcohol intake frequency: other Patient Tobacco Use Status: Current everyday Tobacco user Cigarettes Per Day: 8 e-Cigarette/Vaping Use: Former Use Second Hand Smoke Exposure: No service: No Current occupational status: employed Cognitive needs: No Hearing needs: No Vision needs: Yes Review of Systems Const Denies weakness ENT Denies dizziness Card Denies chest pain, Denies chest pain with activity, Denies syncope, Denies rapid heart rate, Denies pedal edema, Denies edema, Denies leg edema, Denies lightheadedness, Denies palpitations, Denies dyspnea, Denies dyspnea on exertion and Denies orthopnea Resp Denies cough, Denies dyspnea and Denies dyspnea on exertion GI Denies hematochezia and Denies change in stool character Musc Denies abnormal gait, Denies muscle cramps, Denies muscle weakness, Denies numbness, Denies radiating pain into limb and Denies tingling Neuro Denies abnormal gait, Denies dizziness, Denies syncope, Denies numbness, Denies tingling and Denies weakness Endo Denies palpitations Physical Exam Vital Signs: Last Vital Signs Pulse 72 12/31/24 14:28 BP 110/60 12/31/24 14:28 BMI result Body Mass Index 35.3 Const General: comfortable and no acute distress Orientation/consciousness: patient oriented x3 HEENT Other: Unremarkable Head: Yes normal to inspection Neck Neck: Yes normal visual inspection Chest Chest palpation & inspection: normal inspection of the chest Resp Auscultation: clear to auscultation bilaterally Cardio Palpation: normal PMI Heart sounds: S1 normal heart sound present, S2 normal heart sound present, no gallops, no murmurs and no rubs GI Palpation (GI): Soft to palpation Back/Spine/Pelvis Other: unremarkable Skin General skin exam: no rashes or lesions noted Neuro General: patient oriented x3 Extrem General: Yes normal to inspection Psych Mental Status: mental status grossly normal Assessment & Plan Assessment & Plan (1) Atherosclerotic cardiovascular disease: Code(s): I25.10 - Atherosclerotic heart disease of [place] coronary artery without angina pectoris Category: Medical (2) NSTEMI (non-ST elevated myocardial infarction): Code(s): I21.4 - Non-ST elevation (NSTEMI) myocardial infarction Category: Medical (3) Right leg pain: Code(s): M79.604 - Pain in right leg Category: Medical (4) Obesity: Code(s): E66.9 - Obesity, unspecified Category: Medical (5) AUDREY on CPAP: Code(s): G47.33 - Obstructive sleep apnea (adult) (pediatric); Z99.89 - Dependence on other enabling machines and devices Category: Medical (6) Smoking: Code(s): F17.200 - Nicotine dependence, unspecified, uncomplicated Category: Social Hx Plan Cardiac studies reviewed. Echocardiogram in the past with LVEF of 55-60%. No wall motion abnormalities. No significant valvular issues. [id number] LVH. Cardiac catheterization reviewed from 2021. Circumflex with mid 90% stenosis. Status post PCI. Otherwise, diffuse CAD somewhat in the moderate range. Recent stress echocardiogram is unremarkable at 8 METS exercise capacity. No EKG evidence of ischemia. Echocardiographic component was also unremarkable. Overall, his coronary disease seems fairly stable. He can continue the current regimen of aspirin, beta-blockers and statins. Lipids are quite well controlled. Weight loss will help if he can achieve that. Smoking cessation. CPAP. With regard to right leg discomfort, we will evaluate for claudication with ALLAN. If necessary, send to vascular. Follow up in 6 months. In the interim, he will call with any ongoing concerns or seek emergency care as necessary. Orders: Orders US ALLAN complete Today Aaron Sheppard MD I73.9 - Peripheral vascular disease, unspecified Medications: Changed From psyllium husk (Metamucil Fiber Singles) 1 packet PO DAILY 30 ea 0RF K59.01 - Slow transit constipation To psyllium husk (Metamucil Fiber Singles) 1 packet PO DAILY PRN K59.01 - Slow transit constipation Sera Santoyo NP Coding Level of Care Code Est Pt Level 4 (44403) Complex EM visit Add On G2211 Diagnoses Atherosclerotic cardiovascular disease I25.10 NSTEMI (non-ST elevated myocardial infarction) I21.4 Right leg pain M79.604 Obesity E66.9 AUDREY on CPAP G47.33; Z99.89 Smoking F17.200
== END 2024-12-31 14:47 | disposition home or self-care (01) ==
LOC: HO.HCS 14:19
PROVIDERS: PCP Internal Medicine; Visit Provider Internal Medicine
DX: I25.10 Atherosclerotic heart disease of native coronary artery without angina pectoris (principal); I21.4 Non-ST elevation (NSTEMI) myocardial infarction; M79.604 Pain in right leg; E66.9 Obesity, unspecified; G47.33 Obstructive sleep apnea (adult) (pediatric); Z99.89 Dependence on other enabling machines and devices; F17.200 Nicotine dependence, unspecified, uncomplicated
CPT/HCPCS: 99214

== ENCOUNTER 2025-02-25 08:36 | Outpatient (REF) | payer OTHER, SELFPAY ==
--- NOTE | ~2025-02-25 | US_ITS ---
EXAMINATION: Noninvasive assessment of the bilateral lower extremities with ARTERIAL DUPLEX, ANKLE BRACHIAL INDICES (ABIs), and PULSE VOLUME RECORDINGS (PVRs). Limited exam. CLINICAL INFORMATION: Peripheral vascular disease, unspecified. TECHNIQUE: ankle pulse volume recordings, ankle pressure measurements and ankle brachial indices were obtained of the lower extremity arterial system bilaterally. The study was performed only at rest. Limited exam. COMPARISON: None FINDINGS: BRACHIAL PRESSURES: Right: 130 Left: 127 ANKLE PRESSURES: Right: PT 97, DP not recorded. Left: PT 150, DP 153 ANKLE-BRACHIAL INDEX: Right: 0.75 Left: 1.18 ANKLE PVR WAVEFORMS: Right: Abnormal Left: Abnormal US/US ALLAN complete IMPRESSION: Limited examination. Right le.75 Left le.18 ALLAN Reference: - >1.4 = calcified vessels - 0.9 - 1.4 = normal - no significant arterial disease - 0.7 - 0.89 = mild peripheral arterial disease - 0.51 - 0.69 = moderate peripheral arterial disease - 0.50 = severe peripheral arterial disease - < .30 = critical arterial disease Electronically signed by: Jake Ingram MD 02/25/2025 09:15 AM EDT
== END 2025-02-25 08:37 | disposition home or self-care (01) ==
LOC: HO.US 08:36
PROVIDERS: PCP Internal Medicine; Visit Provider Internal Medicine
DX: I73.9 Peripheral vascular disease, unspecified (principal)
CPT/HCPCS: 93923

== ENCOUNTER → 2025-02-25 08:39 | Outpatient (BNV) | payer OTHER, SELFPAY | PROVIDERS: PCP Internal Medicine; Visit Provider Radiology Diagnostic Radiology | DX: I73.9 Peripheral vascular disease, unspecified (principal) | CPT/HCPCS: 93923 ==

== ENCOUNTER 2025-03-27 11:27 | Outpatient (AMB) | payer OTHER, SELFPAY ==
[2025-03-27 12:16] VITALS: BP 120/78; PULSE 64; RESP 16; TEMP 36.8; O2SAT 96; BMI 33.8
--- NOTE | 2025-03-27 12:16 | A.OFFPC_ITS ---
Vital Signs 03/27/25 12:16 Height 5 ft 9 in Weight 229 lb BMI 33.8 BP 120/78 Blood Pressure Location Lt brachial Position Sitting Respiration 16 Pulse 64 Pulse Source Pulse Oximeter Temp 98.3 F Temp Source Oral Pulse Oximetry (%) 96 Oxygen Delivery Method Room Air Intake Visit Reasons: 5m follow up htn Allergies No Known Allergies Allergy (Verified 03/27/25 12:33) Medication List - Last Reconciled 03/27/25 by Donna Romero MD aspirin 81 mg PO DAILY fluticasone propionate 50 mcg/actuation (Children's Flonase Allergy Relief) 1 spray intranasal DAILY metoprolol succinate ER 25 mg PO DAILY multivitamin 1 tab PO DAILY rosuvastatin 40 mg PO DAILY Tobacco use date assessed: 03/27/25 Dental Screening Dental Screen Date: 03/27/25 Did you have a dental visit in the last 12 months?: Yes Did you have a dental problem in the last 6 months where you did not have access to dental care?: No Was dental information given to patient?: Patient has dentist HPI 5m follow up htn HPI Details - The patient is a 54-year-old male pres enting with management of hypertension, hyperlipidemia, and peripheral artery disease. - Hypertension: Currently managed with m etoprolol 25 mg, with no adverse effects reported. - Hyperlipidemia: Managed with rosuvasta tin 40 mg, showing improved LDL levels from 71 in 2021 to 65 recently. - Peripheral artery disease: Diagnosed w ith an ankle-brachial index of 0.75 in the right leg,c/o calf muscle tightness and intermittent foot numbness. - History of myocardial infarction: Occu rred three years ago, managed with baby aspirin. - Tobacco use disorder: The patient smok es and has experienced vertigo-like symptoms when he tried Chantix in the past . - Preventative care: Colonoscopy advised instead of Cologuard, due to persistent soft stools, affecting stool test accuracy. [facility] Medical History (Updated 03/27/25 @ 13:02 by Donna Romero MD) Peripheral vascular disease of lower extremity Cigarette smoker motivated to quit Osteoarthritis, knee Arthritis Atherosclerotic cardiovascular disease Smoker unmotivated to quit Thrombocytopenia Hx of deep venous thrombosis AUDREY on CPAP HTN (hypertension) Obesity Hyperlipidemia Hx of non-ST elevation myocardial infarction (NSTEMI) Surgical History History of heart artery stent History of coronary angioplasty Family History Father Arrhythmia Bacterial endocarditis Mother No problems noted. Daughter Asthma Thyroid cancer Hypoparathyroidism after surgical removal of thyroid gland Social History Housing: House Alcohol intake: current Alcohol intake frequency: other Patient Tobacco Use Status: Current everyday Tobacco user Cigarettes Per Day: 8 e-Cigarette/Vaping Use: Former Use Second Hand Smoke Exposure: No service: No Current occupational status: employed Cognitive needs: No Hearing needs: No Vision needs: Yes Questionnaire PHQ-9 Over the last 2 weeks, how often have you been bothered by any of the following problems? Depression Screening Interpretation: Negative Depression Screening Done: Yes Source: Developed by Drs. Cedric Juan, Ofelia Quiñones, Robert Choudhury and colleagues, with an educational carlos from [employer]. Thrive Questionnaire Date Thrive assessed: 10/22/24 I am a: Patient What is your living situation today?: I have a steady place to live Within the past 12 months, did the food you bought not last and you didn't have the money to get more?: Never true Within the past 12 months, did you worry whether your food would run out before you got money to buy more?: Never true Do you have trouble paying for medicines?: No Do you have trouble getting transportation to medical appointments?: No Do you have trouble paying your heating and electricity bill?: No Do you have trouble taking care of your child, family member or friend?: No Do you have trouble with day-to-day activities such as bathing, preparing meals, shopping, managing finances, etc.?: No Are you currently unemployed and looking for a job?: No Are you interested in more education?: No Please select the resources that you would like help with: None Currently or been in a relationship where the following occur: No concerns reported THRIVE Score: 0 TOBIAS-7 AMB Questionnaire TOBIAS-7 Date TOBIAS - 7 assessed: 10/22/24 Source: Developed by Ofelia Daugherty Kurt Kroenke and colleagues, with an educational carlos from [employer]. Review of Systems Const Denies weakness Eyes Details: [facility] , positive myopia ENT Reports Normal hearing present and Denies dizziness Card Denies chest pain, Denies pedal edema, Denies lightheadedness, Denies palpitations, Denies dyspnea and Denies dyspnea on exertion Resp Denies cough, Denies dyspnea and Denies dyspnea on exertion GI Denies hematochezia and Denies change in stool character Reports no additional complaints Musc Denies abnormal gait, Denies muscle cramps, Denies muscle weakness, Denies numbness, Denies radiating pain into limb and Denies tingling Skin/Breast Reports system reviewed and no additional complaints, except as documented Neuro Reports Normal hearing present, Denies abnormal gait, Denies dizziness, Denies numbness, Denies tingling and Denies weakness Psych Reports no additional complaints Endo Denies palpitations Physical exam (Primary Care) Vital Signs: Last Vital Signs Temp 98.3 F 03/27/25 12:16 Pulse 64 03/27/25 12:16 Resp 16 03/27/25 12:16 BP 120/78 03/27/25 12:16 Pulse Ox 96 03/27/25 12:16 Oxygen Delivery Method Room Air 03/27/25 12:16 BMI result Body Mass Index 33.8 BMI Assessment/Plan discussion: High BMI High, discussed plan: lifestyle, weight reduction, dietary and physical activity Tobacco/Smoking Status: Tobacco use Status Tobacco use date assessed 03/27/25 03/27/25 12:20 Patient Tobacco Use Status Current everyday Tobacco 03/27/25 12:20 e-Cigarette/Vaping Use Former Use 03/27/25 12:20 Are you ready to quit: No Tobacco cessation counseling provided: Yes Items discussed: Other Depression Screening Interpretation: Negative Thrive Assessment: Date of Thrive Assessment Date Thrive assessed 10/22/24 03/27/25 12:20 Currently or been in a relationship where the following occur: No concerns reported Const Other: Alert oriented x3, no acute distress noted ambulatory normal gait Nutritional Appearance: obese Orientation/consciousness: patient oriented x3 HENMT Head: Yes normocephalic and Yes atraumatic Ears: TM's normal bilaterally General nose exam: Normal external nose present Face and sinus: Yes face symmetric Mouth: Normal oral and palatal mucosa present and moist mucous membranes Eyes General: appearance normal, both eyes and all related structures Neck Neck: Yes full ROM, Yes no lymphadenopathy and Yes supple Resp Effort & Inspection: normal respiratory effort and able to speak in complete sentences Auscultation: clear to auscultation bilaterally Cardio Other: S1-S2 present regular rate and rhythm Bruits: no abdominal aortic bruits GI Inspection: Yes obesity Palpation (GI): No Abdominal aortic bruit present, Soft to palpation, nontender, no guarding and no masses Auscultation: normal bowel sounds Male General Exam: Yes normal external exam Back/Spine/Pelvis Back: No back tenderness Skin General skin exam: no rashes or lesions noted Neuro General: patient oriented x3, gait normal, Normal light touch and pain sensation, no focal motor deficits and CN's II-XI intact bilaterally Cranial nerves: Yes Normal hearing present Extrem General: Yes full ROM, Yes no joint enlargement, Yes no calf tenderness and Yes normal gait Psych Appearance: grossly normal and well kempt Mental Status: mental status grossly normal Affect: normal affect Coding Level of Care Code Est Pt Level 4 (81542) Complex EM visit Add On G2211 Diagnoses Peripheral vascular disease of lower extremity I73.9 Encounter for screening for malignant neoplasm of colon Z12.11 Primary hypertension I10 Hypertension type: primary hypertension Thrombocytopenia D69.6 Vitamin D deficiency E55.9 Osteoarthritis, knee M17.9 Cigarette smoker motivated to quit F17.210 Moderate mixed hyperlipidemia not requiring statin therapy E78.2 Hyperlipidemia type: moderate mixed hyperlipidemia not requiring statin therapy Assessment & Plan Assessment & Plan (1) Peripheral vascular disease of lower extremity: Comment: Right leg with abnormal ALLAN Code(s): I73.9 - Peripheral vascular disease, unspecified Category: Medical Plan: Stressed importance of getting hypertension, cholesterol levels controlled, and stressed importance of smoking cessation. (2) Encounter for screening for malignant neoplasm of colon: Code(s): Z12.11 - Encounter for screening for malignant neoplasm of colon Plan: Referred to Dr. Murphy for his initial screening colonoscopy. (3) HTN (hypertension): Code(s): I10 - Essential (primary) hypertension Category: Medical Qualifiers: Hypertension type: primary hypertension Qualified Code(s): I10 - Essential (primary) hypertension Plan: Blood pressure at goal of less than 130/80. Continue with metoprolol succinate ER 25 mg daily. Reinforced importance of following a low sodium diet, getting regular exercise, and lowering stress levels. (4) Thrombocytopenia: Code(s): D69.6 - Thrombocytopenia, unspecified Category: Medical Plan: Currently asymptomatic will continue to monitor platelet count (5) Vitamin D deficiency: Code(s): E55.9 - Vitamin D deficiency, unspecified Category: Medical Plan: Ordered repeat vitamin-D level check, in the meantime advised to start taking [id number] vitamin D3 at 2000 units daily (6) Osteoarthritis, knee: Code(s): M17.9 - Osteoarthritis of knee, unspecified Category: Medical Plan: Handicap placard application completed today. (7) Cigarette smoker motivated to quit: Code(s): F17.210 - Nicotine dependence, cigarettes, uncomplicated Category: Social Hx Plan: Will try using varenicline again to help quit smoking. Patient instructed to use it as directed (8) Hyperlipidemia: Code(s): E78.5 - Hyperlipidemia, unspecified Category: Medical Qualifiers: Hyperlipidemia type: moderate mixed hyperlipidemia not requiring statin therapy Qualified Code(s): E78.2 - Mixed hyperlipidemia Plan: Fasting lipid panel ordered, currently on rosuvastatin 40 mg daily Orders: Orders Basic Metabolic Panel Fasting 03/27/25 D69.6 - Thrombocytopenia, unspecified, E55.9 - Vitamin D deficiency, unspecified, I10 - Essential (primary) hypertension Complete Blood Count Auto Diff 03/27/25 D69.6 - Thrombocytopenia, unspecified, E55.9 - Vitamin D deficiency, unspecified, I10 - Essential (primary) hypertension Referrals Gastroenterology Referral Z12.11 - Encounter for screening for malignant neoplasm of colon Medications: New varenicline tartrate Take it always with a glass of water and with food 53 ea 0RF
== END 2025-03-27 13:02 | disposition home or self-care (01) ==
LOC: HO.HMCC 11:28
PROVIDERS: PCP Internal Medicine; Visit Provider Internal Medicine
DX: I73.9 Peripheral vascular disease, unspecified (principal); Z12.11 Encounter for screening for malignant neoplasm of colon; I10 Essential (primary) hypertension; D69.6 Thrombocytopenia, unspecified; E55.9 Vitamin D deficiency, unspecified; M17.9 Osteoarthritis of knee, unspecified; F17.210 Nicotine dependence, cigarettes, uncomplicated; E78.2 Mixed hyperlipidemia

== ENCOUNTER 2025-04-11 11:22 | Outpatient (AMB) | payer OTHER, SELFPAY ==
--- NOTE | 2025-04-11 11:24 | MHC.OFFVIS ---
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 Has been ongoing for about 8 months. Cramping multiple times a day. 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 The patient reports experiencing cramping and numbness in the foot after walking less than 50 yards, which has been ongoing for about eight months. He underwent a stress test in October, which revealed issues with the leg, leading to further vascular evaluation. The patient has a history of deep vein thrombosis in the left leg and superficial phlebitis affecting the saphenous vein. He is currently in the process of quitting smoking, having smoked about a pack a day, and denies having diabetes. 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 [facility] Medical History Peripheral vascular disease of lower extremity Cigarette smoker motivated to quit Osteoarthritis, knee Arthritis Atherosclerotic cardiovascular disease Smoker unmotivated to quit Thrombocytopenia Hx of deep venous thrombosis AUDREY on CPAP HTN (hypertension) Obesity Hyperlipidemia Hx of non-ST elevation myocardial infarction (NSTEMI) Surgical History History of heart artery stent History of coronary angioplasty Family History Father Arrhythmia Bacterial endocarditis Mother No problems noted. Daughter Asthma Thyroid cancer Hypoparathyroidism after surgical removal of thyroid gland Social History Housing: House Alcohol intake: current Alcohol intake frequency: other Patient Tobacco Use Status: Current everyday Tobacco user Cigarettes Per Day: 8 e-Cigarette/Vaping Use: Former Use Second Hand Smoke Exposure: No service: No Current occupational status: employed Cognitive needs: No Hearing needs: No Vision needs: Yes Review of Systems Const All systems reviewed & are unremarkable except as noted in HPI and below Reports no additional complaints ENT Reports Normal hearing present Card Denies chest pain, Denies chest pain at rest, Denies chest pain with activity and Denies pedal edema Resp Denies cough GI Denies abdominal pain Musc Denies abnormal gait, Denies muscle cramps and Denies radiating pain into limb Skin/Breast Denies skin ulcer and Denies wounds Neuro Reports Normal hearing present and Denies abnormal gait Psych Reports no additional complaints Physical Exam Const General: cooperative, healthy appearing and comfortable Orientation/consciousness: oriented to person, oriented to place and oriented to time HEENT Head: Yes normal to inspection Neck Neck: Yes normal visual inspection Carotids: no bruits Chest Chest palpation & inspection: normal inspection of the chest Resp Effort & Inspection: normal respiratory effort and able to speak in complete sentences Auscultation: clear to auscultation bilaterally, no crackles, no rales, no rhonchi and no wheezes Cardio Other: Right side DP signal left side palpable dorsalis pedis pulse. Rate: regular rate Rhythm: regular rhythm Heart sounds: S1 normal heart sound present and S2 normal heart sound present Bruits: no carotid bruits Peripheral pulses: Peripheral pulses 2+ throughout GI Inspection: Yes normal to inspection Skin Wounds: no wounds Hair: normal Neuro General: oriented to person, oriented to place and oriented to time Cranial nerves: Yes CN's II-XII intact bilaterally and Yes Normal hearing present Cognition (Neuro): normal cognition Motor exam (neuro): 5/5 motor strength present throughout Extrem Other: venous exam: No significant superficial varicosities or spider telangiectasias, minimal edema General: No clubbing, No cyanosis and No edema Psych Appearance: grossly normal Mental Status: mental status grossly normal Speech and movement: Normal speech and movement present Results Reviewed Results Reviewed: Noninvasive arterial testing dated 02/25/2025 demonstrates ALLAN on the right of 0.75 and on the left of 1.18. Assessment & Plan Assessment & Plan (1) PAD (peripheral artery disease): Code(s): I73.9 - Peripheral vascular disease, unspecified Category: Medical Plan: Patient notes leg pain when walking distances. I have discussed the pathophysiology of peripheral vascular disease with the patient. I have also discussed risk factor modification. I have reviewed the patient's arterial testing which reveals right ALLAN of 0.75 with concerns of SFA disease. the patient would benefit from a right leg endovascular peripheral angiogram with possible angioplasty, stent, and/or atherectomy. This has been discussed in detail with the patient along with risks, benefits, and complications. This includes but is not limited to bleeding, infection, heart attack, need for emergent surgical repair, limb ischemia, blood vessel damage, bleeding, puncture, kidney injury, bruising, allergic reaction, and skin reaction. The patient demonstrates a clear understanding. We will schedule for the next appropriate time. Thank you for allowing us to assist in this patient's care. Coding Level of Care Code New Pt Level 4 (78877) Complex EM visit Add On G2211 Diagnoses PAD (peripheral artery disease) I73.9
== END 2025-04-11 11:59 | disposition home or self-care (01) ==
LOC: HO.HVS 11:23
PROVIDERS: PCP Internal Medicine; Visit Provider Surgery Vascular Surgery
DX: I73.9 Peripheral vascular disease, unspecified (principal)
CPT/HCPCS: 99204

== ENCOUNTER 2025-04-17 07:20 | Day surgery (SDC) | payer OTHER, SELFPAY ==
[2025-04-17] VITALS (26 sets, daily range): BP systolic 114–138; BP diastolic 76–87; PULSE 55–63; RESP 12–21; TEMP 36.1–36.7; O2SAT 95–97; BMI 35.5
[2025-04-17 07:54] LABS: MANUAL DIFF FLAG NO
[2025-04-17 07:59] LABS: Hematocrit 45.2 % (42.0-52.0); Hemoglobin 16.0 g/dl (14.0-18.0); Imm Gran Abs Auto 0.03 X10*3/uL (0.00-0.03); Imm Gran Pct Auto 0.5 % (0.0-0.4); Lymphocytes Absolute Auto 1.6 X10*3/uL (1.2-4.9); Mean Corpuscular HGB Conc 35.4 g/dl (31.0-36.0); Mean Corpuscular Hemoglobin 31.3 pg (27.0-33.0); Mean Corpuscular Volume 88.3 fL (80.0-98.0); NRBC Abs Auto 0.000 X10*3/uL (0.0-0.012); NRBC Pct Auto 0.0 /100WBC (0.0-0.2); Platelet Count 133 X10*3/uL (160-400); Red Blood Count 5.12 X10*6/uL (4.60-5.80); White Blood Count 5.6 X10*3/uL (4.8-10.8)
[2025-04-17 08:09] LABS: Blood Urea Nitrogen 14 mg/dL (9-16); Creatinine Clr Calc Pharmacy 94.1; Estimated Glomerular Filt Rate > 60
[2025-04-17] MEDS: Heparin Sodium,Porcine 10,000 UNIT/10 ML VIAL 8000 UNIT IVPUSH (09:49)
--- NOTE | 2025-04-17 11:20 | P.OP_ITS ---
Operative Note Operative Note Date of Service: 04/17/25 Narrative: Angiogram report from [facility] Preoperative diagnosis: Atherosclerosis of right lower extremity with activity limiting claudication Postoperative diagnosis: Same Procedure: 1. Ultrasound-guided left common femoral access 2. Aortogram with right lower extremity runoff 3. Right SFA atherectomy and stent placement Surgeon:Boyd Perez M.D., FACS, RPVI Mail Superintendent:None Anesthesia: Local with moderate conscious sedation. Total intraservice moderate sedation time was 68 minutes. I monitored the patient's level of consciousness and physiologic status continuously throughout the procedure. Specimens:none Drains:none Estimated blood loss: Less than 10 ml Radiation Dose: 386.9 mGy Implant: Medtronic Ev 3 stent 6 x 40, Medtronic Impact DCB 6 x 60 Indications: Pleasant 54-year-old gentleman presents for endovascular intervention regarding right lower extremity. He has activity limiting claudication. On noninvasive testing there was concern of SFA disease. The patient has signed the informed consent after reviewing risks, complications, benefits, and alternatives previously discussed with the patient. The patient was given the opportunity to ask any additional questions or voice any concerns. All questions were answered to the patient's satisfaction. Procedure in detail: Patient was brought to the angiography suite prior to which a time-out was called for patient identification and site verification. Bilateral groins were prepped and draped in the standard surgical fashion. Under ultrasound guidance left common femoral was punctured with micro puncture needle and wire. Subsequently a precision 5 [place] sheath was then placed. Bentson wire was advanced to the level of the aorta. 5 [place] Flush catheter was brought up and parked at the level of the renal arteries. Aortogram was then undertaken. Catheter was brought down to the level of the iliac bifurcation. Iliacs and runoff was performed through the flush catheter that was parked at the bifurcation and a power injection was performed to visualize bilateral runoff vessels. Subsequently the catheter was then brought in up and over to the right side SFA. At this point we did recognize there was a distal SFA occlusion. We administered 8000 units of systemic heparin. An up and over 6 [place] sheath was then placed. Once in appropriate position we then advanced an 035 glidewire Advantage. We were able to traverse this lesion and then we followed this with a trail Blazer catheter. Once through we then exchanged out for a 6 [place] spider wire. Over that we 1st plasty this area with a 3 x 40 balloon. This was used to create a luminal channel in order to perform an atherectomy. Hawk 1 atherectomy was then performed. Multiple unidirectional passes were then undertaken. Once this was accomplished there was still some residual luminal stenosis along with a questionable dissection. We 1st plasty this with a 5 x 40 stent. There was still concern and we then placed a 6 x 40 stent. We followed this with a 6 x 60 drug coated balloon. The drug coated balloon was brought into position in under 3 minutes and insufflated for a total of 3 minutes in duration. Completion angiogram demonstrated excellent result. Catheter wire sheath was brought back to the ipsilateral side. A 6 [place] CELT closure device was then placed. Patient tolerated the procedure well. Returned to recovery with stable vitals. Interpretation of films: 1. Ultrasound demonstrates appropriate femoral access site. Vessel was patent with minimal stenosis. Needle entry was visualized. Image of ultrasound was saved. 2. Aortogram demonstrates appropriate caliber aorta. Minimal disease. Appropriate take-off of the renals. 3. Iliac images demonstrate no significant disease 4. Right Leg Common femoral artery: No significant disease Profundus Femoris: No significant disease Superficial femoral artery: Total occlusion distal SFA, postprocedure good flow through stent Popliteal artery (p1,p2,p3): Patent occludes at the P3 segment Anterior tibial artery: Reconstitutes via collaterals diminished flow but flow down to the ankle Peroneal artery: Dominant flow down to ankle, again reconstitutes via collaterals no direct flow from popliteal Posterior tibial artery: Flow down to ankle, reconstitutes via collaterals to the TP trunk Dorsalis pedis/plantar arch: Incomplete Conclusion: 1. Successful right atherectomy and stent placed 2. Anticoagulation status: 6 months of aspirin and Plavix This note is constructed using voice recognition software. While every effort has been made to ensure accuracy, sterile process coordinator errors may have been included. Thank you for allowing me to participate in the care of your patient. Yours sincerely, Boyd Perez MD, FACS, R.P.V.I.
[2025-04-17 13:40] LABS: ACT 233 Celite s (79-173)
== END 2025-04-17 13:00 | disposition home or self-care (01) ==
PROVIDERS: PCP Internal Medicine; Visit Provider Surgery Vascular Surgery
DX: I70.211 Atherosclerosis of native arteries of extremities with intermittent claudication, right leg (principal); I70.92 Chronic total occlusion of artery of the extremities; Z86.718 Personal history of other venous thrombosis and embolism; F17.210 Nicotine dependence, cigarettes, uncomplicated
CPT/HCPCS: 36415; 37227; 37231; 76937; 82565; 84520; 85025; 85347; 99152; 99153; C1714; C1725; C1760; C1769; C1876; C1887; C1894; C2623; J1644; J2250; J3010; Q9967

== ENCOUNTER → 2025-04-17 07:20 | Outpatient (BNV) | payer OTHER, SELFPAY | PROVIDERS: PCP Internal Medicine; Visit Provider Surgery Vascular Surgery | DX: I70.211 Atherosclerosis of native arteries of extremities with intermittent claudication, right leg (principal) | CPT/HCPCS: 37227; 75625; 75710; 76937; 99152 ==

== ENCOUNTER 2025-04-26 06:31 | Outpatient (REF) | payer OTHER, SELFPAY ==
[2025-04-26 10:14] LABS: MANUAL DIFF FLAG NO
[2025-04-26 10:37] LABS: Hematocrit 49.8 % (42.0-52.0); Hemoglobin 16.9 g/dl (14.0-18.0); Imm Gran Abs Auto 0.03 X10*3/uL (0.00-0.03); Imm Gran Pct Auto 0.5 % (0.0-0.4); Lymphocytes Absolute Auto 1.8 X10*3/uL (1.2-4.9); Mean Corpuscular HGB Conc 33.9 g/dl (31.0-36.0); Mean Corpuscular Hemoglobin 30.8 pg (27.0-33.0); Mean Corpuscular Volume 90.7 fL (80.0-98.0); NRBC Abs Auto 0.000 X10*3/uL (0.0-0.012); NRBC Pct Auto 0.0 /100WBC (0.0-0.2); Platelet Count 147 X10*3/uL (160-400); Red Blood Count 5.49 X10*6/uL (4.60-5.80); White Blood Count 6.3 X10*3/uL (4.8-10.8)
[2025-04-26 11:01] LABS: Alanine Aminotransferase 41 U/L (0-40); Anion Gap 11 (12-20); Aspartate Amino Transferase 28 U/L (5-37); Blood Urea Nitrogen 11 mg/dL (9-16); Calcium 9.1 mg/dL (8.4-10.2); Carbon Dioxide 26 mmol/L (22-29); Chloride 109 mmol/L (96-108); Cholesterol 157 mg/dL (<200); Estimated Glomerular Filt Rate > 60; HDL Cholesterol 31 mg/dL (>40); Potassium 4.2 mmol/L (3.3-5.1); Sodium 142 mmol/L (135-145); Triglycerides 111 mg/dL (<150)
[2025-05-02 13:23] LABS: Vitamin D 25-OH, D2 <4 ng/mL; Vitamin D 25-OH, D3 39 ng/mL; Vitamin D 25-OH, Total 39 ng/mL (30-100)
== END 2025-04-26 06:32 | disposition home or self-care (01) ==
LOC: HO.HMGCLDS 06:31
PROVIDERS: Nurse Practitioner Family; PCP Internal Medicine; Visit Provider Internal Medicine
DX: I25.10 Atherosclerotic heart disease of native coronary artery without angina pectoris (principal); E78.2 Mixed hyperlipidemia; E66.9 Obesity, unspecified; I10 Essential (primary) hypertension; D69.6 Thrombocytopenia, unspecified; E55.9 Vitamin D deficiency, unspecified; F17.210 Nicotine dependence, cigarettes, uncomplicated; Z71.6 Tobacco abuse counseling; Z79.82 Long term (current) use of aspirin; Z79.899 Other long term (current) drug therapy
CPT/HCPCS: 36415; 80048; 80061; 82306; 82550; 84450; 84460; 85025

== ENCOUNTER 2025-04-26 08:22 | Outpatient (AMB) | payer OTHER, SELFPAY ==
--- NOTE | 2025-04-26 08:16 | A.OFFPC_ITS ---
Intake Visit Reasons: smoking cessation I phone Allergies No Known Allergies Allergy (Verified 04/26/25 08:38) Medication List - Last Reconciled 04/26/25 by Donna Romero MD aspirin 81 mg PO DAILY clopidogrel (Plavix) 75 mg PO DAILY fluticasone propionate 50 mcg/actuation (Children's Flonase Allergy Relief) 1 spray intranasal DAILY metoprolol succinate ER 25 mg PO DAILY multivitamin 1 tab PO DAILY rosuvastatin 40 mg PO DAILY varenicline tartrate Take it always with a glass of water and with food Tobacco use date assessed: 04/26/25 Dental Screening Dental Screen Date: 04/26/25 Did you have a dental visit in the last 12 months?: Yes Did you have a dental problem in the last 6 months where you did not have access to dental care?: Yes Was dental information given to patient?: Patient has dentist HPI smoking cessation I phone HPI Details 54-year-old male, with a history of hype rtension, hyperlipidemia, and peripheral artery disease, here today wanting to help again with quitting smoking.. He initially was on Chantix or varenicline, took at least 2 weeks of to starter pack which she states helped cut back his cravings for nicotine, but has been off it now for several weeks again. Would like to restart taking Chantix again and wants to know if he needs to be placed back on the starter pack or just start from where he left off at 1 mg twice a day. Denies any adverse effects from taking the medication. He now smokes about 8 cigarettes a day [facility] Medical History Peripheral vascular disease of lower extremity Cigarette smoker motivated to quit Osteoarthritis, knee Arthritis Atherosclerotic cardiovascular disease Thrombocytopenia Hx of deep venous thrombosis AUDREY on CPAP HTN (hypertension) Obesity Hyperlipidemia Hx of non-ST elevation myocardial infarction (NSTEMI) Surgical History History of heart artery stent History of coronary angioplasty Family History Father Arrhythmia Bacterial endocarditis Mother No problems noted. Daughter Asthma Thyroid cancer Hypoparathyroidism after surgical removal of thyroid gland Social History Housing: House Alcohol intake: current Alcohol intake frequency: other Patient Tobacco Use Status: Current everyday Tobacco user Tobacco use type: Cigarette Cigarettes Per Day: 8 e-Cigarette/Vaping Use: Former Use Second Hand Smoke Exposure: No service: No Current occupational status: employed Cognitive needs: No Hearing needs: No Vision needs: Yes Questionnaire PHQ-9 Over the last 2 weeks, how often have you been bothered by any of the following problems? 1. Little interest or pleasure in doing things: not at all 2. Feeling down, depressed, or hopeless: not at all 3. Trouble falling or staying asleep, or sleeping too much: not at all 4. Feeling tired or having little energy: not at all 5. Poor appetite or overeating: not at all 6. Feeling bad about yourself - or that you are a failure or have let yourself or your family down: not at all 7. Trouble concentrating on things, such as reading the newspaper or watching television: not at all 8. Moving or speaking so slowly that other people could have noticed. Or the opposite - being so fidgety or restless that you have been moving around a lot more than usual: not at all 9. Thoughts that you would be better off or of hurting yourself in some way: not at all Total score: 0 Depression Screening Interpretation: Negative Depression Screening Done: Yes Source: Developed by Drs. Cedric Juan, Ofelia Quiñones, Robert Choudhury and colleagues, with an educational carlos from [employer]. Thrive Questionnaire Date Thrive assessed: 10/22/24 I am a: Patient What is your living situation today?: I have a steady place to live Within the past 12 months, did the food you bought not last and you didn't have the money to get more?: Never true Within the past 12 months, did you worry whether your food would run out before you got money to buy more?: Never true Do you have trouble paying for medicines?: No Do you have trouble getting transportation to medical appointments?: No Do you have trouble paying your heating and electricity bill?: No Do you have trouble taking care of your child, family member or friend?: No Do you have trouble with day-to-day activities such as bathing, preparing meals, shopping, managing finances, etc.?: No Are you currently unemployed and looking for a job?: No Are you interested in more education?: No Please select the resources that you would like help with: None Currently or been in a relationship where the following occur: No concerns reported THRIVE Score: 0 AUDIT C Alcohol Use Questionnaire (AUDIT-C) 1. How often do you have a drink containing alcohol?: Monthly or less 2. How many drinks containing alcohol do you have on a typical day when you are drinking?: 1 or 2 3. How often do you have six or more drinks on one occasion?: Never Total Score: 1 TOBIAS-7 AMB Questionnaire TOBIAS-7 Date TOBIAS - 7 assessed: 10/22/24 Feeling nervous, anxious, or on edge: 0 = Not at all Not being able to stop or control worryin = Not at all Worrying too much about different things: 0 = Not at all Trouble relaxin = Not at all Being so restless that it is hard to sit still: 0 = Not at all Becoming easily annoyed or irritable: 0 = Not at all Feeling afraid as if something awful might happen: 0 = Not at all Total TOBIAS-7 score (0-4 normal; 5-9 mild; 10-14 moderate; 15-21 severe): 0 Source: Developed by Drs. Cedric Juan, Ofelia Quiñones, Robert Choudhury and colleagues, with an educational carlos from [employer]. Review of Systems Const Reports no additional complaints Card Denies chest pain, Denies chest pain at rest, Denies chest pain with activity and Denies pedal edema Resp Denies cough GI Denies abdominal pain Musc Denies abnormal gait, Denies muscle cramps and Denies radiating pain into limb Skin/Breast Denies skin ulcer and Denies wounds Neuro Denies abnormal gait Psych Reports no additional complaints Physical exam (Primary Care) Tobacco/Smoking Status: Tobacco use Status Tobacco use date assessed 04/26/25 04/26/25 08:21 Patient Tobacco Use Status Current everyday Tobacco 04/26/25 08:21 Tobacco use type Cigarette 04/26/25 08:21 e-Cigarette/Vaping Use Former Use 04/26/25 08:21 PHQ-9: PHQ-9 Score PHQ-9: Total score 0 04/26/25 08:45 Depression Screening Interpretation: Negative Thrive Assessment: Date of Thrive Assessment Date Thrive assessed 10/22/24 04/26/25 08:21 Currently or been in a relationship where the following occur: No concerns reported Telehealth Telehealth [facility] Location of provider rendering services: practice address Location of patient: address on file Patient Identification confirmed using: Name, : Yes Telehealth method: video Patient verbally consented to treatment: Yes Patient verbally consented to billing insurance company: Yes Patient informed of any privacy concerns related to visit: Yes Minutes spent on Phone/Video with Pt.: 15 Coding Level of Care Code Tele Est Pt Level 4 (99224) Complex EM visit Add On G2211 Diagnoses Cigarette smoker motivated to quit F17.210 Assessment & Plan Assessment & Plan (1) Cigarette smoker motivated to quit: Code(s): F17.210 - Nicotine dependence, cigarettes, uncomplicated Category: Social Hx Plan: Will try again on varenicline, prescription sent for the continuing month Michael at 1 mg taken twice a day with a full glass of water and a meal. Advised to just take half a tablet once a day for the 1st 3 days and increase it to twice a day thereafter, he can goes straight to 1 mg twice a day if he is able to tolerate this dose. Advised to stay on Chantix for at least 3 months avoid slipping back into the habit again. Discuss again possible side effects of the medication which may include some nausea, increased risk of suicidality, and advised that once this happens to stopped taking the medication immediately and notify us. Medications: New varenicline tartrate take it with a meal and a full glass of water 1 mg PO BID 56 tabs 2RF Discontinued varenicline tartrate Discontinued Reason: Doctor's Order Take it always with a glass of water and with food 53 ea 0RF
== END 2025-04-26 09:31 | disposition home or self-care (01) ==
LOC: HO.HMCC 08:22
PROVIDERS: PCP Internal Medicine; Visit Provider Internal Medicine
DX: F17.210 Nicotine dependence, cigarettes, uncomplicated (principal)

== ENCOUNTER 2025-05-02 12:41 | Outpatient (AMB) | payer OTHER, SELFPAY ==
--- NOTE | 2025-05-02 12:58 | MHC.OFFVIS ---
Intake Visit Reasons: 2 week Angio Follow up 04/17/25 Intake Note: Patient presents for two week angio follow up. Patient states he has some numbness in his right leg. No other complaints. Accompanied by: Unknown Allergies No Known Allergies Allergy (Verified 05/02/25 13:00) [facility] HPI 2 week Angio Follow up 04/17/25: Details: Very pleasant 54-year-old gentleman presents for follow-up regarding peripheral vascular disease. On 04/17/2025 he underwent right SFA atherectomy and stent placement. He tolerated the procedure well and reports that he is ambulating fairly well. No postprocedure issues. [facility] Medical History Peripheral vascular disease of lower extremity Cigarette smoker motivated to quit Osteoarthritis, knee Arthritis Atherosclerotic cardiovascular disease Thrombocytopenia Hx of deep venous thrombosis AUDREY on CPAP HTN (hypertension) Obesity Hyperlipidemia Hx of non-ST elevation myocardial infarction (NSTEMI) Surgical History History of heart artery stent History of coronary angioplasty Family History Father Arrhythmia Bacterial endocarditis Mother No problems noted. Daughter Asthma Thyroid cancer Hypoparathyroidism after surgical removal of thyroid gland Social History Housing: House Alcohol intake: current Alcohol intake frequency: other Patient Tobacco Use Status: Current everyday Tobacco user Tobacco use type: Cigarette Cigarettes Per Day: 8 e-Cigarette/Vaping Use: Former Use Second Hand Smoke Exposure: No service: No Current occupational status: employed Cognitive needs: No Hearing needs: No Vision needs: Yes Review of Systems Const All systems reviewed & are unremarkable except as noted in HPI and below Reports no additional complaints ENT Reports Normal hearing present Card Denies chest pain, Denies chest pain at rest, Denies chest pain with activity and Denies pedal edema Resp Denies cough GI Denies abdominal pain Musc Denies abnormal gait, Denies muscle cramps and Denies radiating pain into limb Skin/Breast Denies skin ulcer and Denies wounds Neuro Reports Normal hearing present and Denies abnormal gait Psych Reports no additional complaints Physical Exam Const General: cooperative, healthy appearing and comfortable Orientation/consciousness: oriented to person, oriented to place and oriented to time HEENT Head: Yes normal to inspection Neck Neck: Yes normal visual inspection Carotids: no bruits Chest Chest palpation & inspection: normal inspection of the chest Resp Effort & Inspection: normal respiratory effort and able to speak in complete sentences Auscultation: clear to auscultation bilaterally, no crackles, no rales, no rhonchi and no wheezes Cardio Other: Bilateral DP signals Rate: regular rate Rhythm: regular rhythm Heart sounds: S1 normal heart sound present and S2 normal heart sound present Bruits: no carotid bruits Peripheral pulses: Peripheral pulses 2+ throughout GI Inspection: Yes normal to inspection Skin Wounds: no wounds Hair: normal Neuro General: oriented to person, oriented to place and oriented to time Cranial nerves: Yes CN's II-XII intact bilaterally and Yes Normal hearing present Cognition (Neuro): normal cognition Motor exam (neuro): 5/5 motor strength present throughout Extrem Other: venous exam: No significant superficial varicosities or spider telangiectasias, minimal edema General: No clubbing, No cyanosis and No edema Psych Appearance: grossly normal Mental Status: mental status grossly normal Speech and movement: Normal speech and movement present Assessment & Plan Assessment & Plan (1) PAD (peripheral artery disease): Comment: 04/17/2025 - right SFA atherectomy and stent Code(s): I73.9 - Peripheral vascular disease, unspecified Category: Medical Plan: In short patient has stable claudication. I did review the pathophysiology of peripheral vascular disease with the patient. In addition we did discuss routine conservative measures including a healthy diet and the importance of exercise and ambulation. We did discuss risk factor modification. The patient will continue to to follow-up with surveillance follow-up in approximately 3 months. Thank you for allowing us to participate in this patient's care. If there are any questions or concerns please do not hesitate to contact us. Orders: Orders US arterial duplex LE BI 3 Months I73.9 - Peripheral vascular disease, unspecified Coding Level of Care Code Est Pt Level 4 (01964) Diagnoses PAD (peripheral artery disease) I73.9
== END 2025-05-02 14:07 | disposition home or self-care (01) ==
LOC: HO.HVS 12:42
PROVIDERS: PCP Internal Medicine; Visit Provider Surgery Vascular Surgery
DX: I73.9 Peripheral vascular disease, unspecified (principal)
CPT/HCPCS: 99214